=== PATIENT | female | born 1955 | race Caucasian/White ===

== ENCOUNTER 2021-05-17 13:28 | Emergency (ER) | payer OTHER, SELFPAY ==
[2021-05-17 13:28] VITALS: BP 197/101; PULSE 87; RESP 16; TEMP 36.3; O2SAT 100; BMI 31.3
[2021-05-17 13:30] VITALS: BP 197/101; PULSE 87; RESP 16; TEMP 36.3; O2SAT 100
[2021-05-17 14:34] LABS: Bacteria 0 SEEN /hpf (None Seen); Mucous, Urine 0 SEEN /hpf (<or=2+); White Blood Cells 0 SEEN /hpf (0-5)
[2021-05-17 14:35] LABS: Color, Urine Yellow (Yellow); Glucose, Dipstick Normal (Normal); Ketone-Dipstick 15 mg/dl (Negative); Leukocyte Esterase-Dipstick Negative /ul (Negative); Nitrite-Dipstick Negative (Negative); Occult Blood-Urine 250 /ul (Negative); Protein-Dipstick Negative (Negative); Specific Gravity, Urine 1.015 (1.002-1.030); Urine Bilirubin Dipstick Negative (Negative); Urine Clarity Clear (Clear); Urine Urobilinogen Normal (Normal)
--- NOTE | 2021-05-17 14:35 | CT_ITS ---
HISTORY: Left flank pain EXAMINATION: CT Abdomen And Pelvis W/O Contrast Injection TECHNIQUE: Multiple axial images were obtained of the abdomen and pelvis without oral or IV contrast. A radiation dose optimization technique was used for this scan. IV Contrast dosage and agent: None. Oral contrast: None. COMPARISON: None FINDINGS: LOWER CHEST: Lung bases are clear. No cardiomegaly or pericardial effusion. LIVER: Homogeneous. No focal mass. GALLBLADDER AND BILIARY TREE: No calcified gallstones. No gallbladder distension or wall edema. No intra- or extrahepatic biliary ductal dilation. PANCREAS: No focal cystic or solid mass. SPLEEN: Normal size without focal cystic or solid mass. ADRENAL GLANDS: No nodules. KIDNEYS AND URETERS: Nonobstructing left nephrolithiasis. Prominent left extrarenal pelvis with mild prominence of the collecting system and left perinephric stranding. No left ureteral dilatation or calculus in the lumen of the left ureter. PERITONEUM: No ascites or free air. BOWEL: No evidence of acute appendicitis. No stomach or bowel distension. No focal inflammatory bowel wall changes. LYMPH NODES: No enlarged mesenteric or retroperitoneal lymph nodes. VESSELS: Aorta is non-dilated. URINARY BLADDER: Unremarkable. REPRODUCTIVE ORGANS: No pelvic masses. BONES: No acute or aggressive abnormality. Chronic L2 compression fracture with mild retropulsion of the posterior endplate. CT/Abdomen/Pelvis without Cont IMPRESSION: Nonobstructing left nephrolithiasis. 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 Correlate to exclude ascending UTI. Individualized dose optimization techniques were used for this CT. at 1543 Reported and signed by: Gama Serrato MD Electronically Signed: Gama Serrato MD at 15:42 EDT ,
[2021-05-17 14:50] LABS: Absolute Lymphocyte Count 1.38 X10^3/uL (0.83-4.51); Basophil# 0.06 X10^3/uL; Basophil% 0.6 % (0-1); Eosinophil# 0.03 X10^3/uL; Eosinophils% 0.3 % (0-5); Hematocrit 43.6 % (37-47); Hemoglobin 14.4 g/dL (12.0-15.0); Lymphocyte # 1.38 X10^3/ul (0.83-4.51); Lymphocyte % 13.9 % (19-41); Mean Corpuscular Hgb 28.5 pg (27.0-32.0); Mean Corpuscular Volume 86.2 fL (81-99); Mean Platelet Vol. 10.3 fl (6.2-12.0); Monocyte# 0.46 X10^3/uL; Monocyte% 4.6 % (0-10); NRBC Flagged by Analyzer 0 % (0-5); Neutrophil # 7.97 X10^3/uL (2.7-7.7); Neutrophil % 80.3 % (47-70); Platelet Count 267 K/mm3 (150-450); RBC Distribution Width CV 13.6 % (11.6-14.6); RBC Distribution Width SD 42.7 fl (35.1-43.9); Red Blood Count 5.06 M/mm3 (4.2-5.4); White Blood Count 9.9 K/mm3 (4.4-11.0)
[2021-05-17 14:56] LABS: Red Blood Cells-Urine 25-50 SEEN /hpf (0-5); Squamous Epithelial Cells - UA 0-5 SEEN /hpf (5-10)
[2021-05-17 15:16] LABS: ALB/GLOB Ratio 1.1 RATIO (0.9-2.4); AST(SGOT) 28 U/L (15-37); Alanine Aminotransfer ALT/SGPT 41 U/L (13-56); Albumin, Serum 4.1 g/dL (3.2-5.0); Alkaline Phosphatase 61 U/L (45-117); Anion Gap 4 (5-15); BUN 17 mg/dL (7-18); BUN/Creat Ratio 20.8 RATIO (10-20); Calcium,Total 9.6 mg/dL (8.5-10.1); Chloride 107 mmol/L (98-107); Creatinine, Serum 0.82 mg/dL (0.55-1.02); EST Glomerular Filtration Rate 74 mL/min (>60); Est Glom Filt Rate - Afr Amer 90 mL/min (>60); Estimated Creatinine Clearance 63.85 ml/min; Globulin 3.7 g/dL (2.2-4.2); Glucose 102 mg/dL (74-106); Protein, Total 7.8 g/dL (6.4-8.2); Sodium Level 139 mmol/L (136-145); Thyroid Stim Hormone (TSH) 1.76 uIU/mL (0.358-3.74)
--- NOTE | 2021-05-17 15:41 | EX.ED.DYSGE1 ---
HPI History of Present Illness Chief Complaint: Flank Pain Informant: patient Onset/Context/Timing Onset: Yesterday Context: Gradual Onset Timing: Waxes and wanes Quality: Stabbing Location: Left flank Worsened by: Nothing Relieved by: Laying down, vomiting Narrative Narrative: Patient presents with left flank pain that began yesterday. Patient states it has been waxing and waning. Patient describes her pain as stabbing. Patient states it came on gradually. Patient states nothing makes it worse. Patient states seems to get better whenever she lays down. Patient also had an episode of nausea and vomiting. Patient states her pain got better after that. Patient admits to some subjective chills but denies any fevers. Patient denies any dysuria or hematuria. PFSH PFSH Medical History no medical history no medical history Home Medications hydrocodone-acetaminophen 1 tab PO Q6H PRN PRN 3 Days #10 tablet 05/17/21 [Rx Last Taken Unknown] Allergy/AdvReac Type Severity Reaction Status Date / Time No Known Allergies Allergy Verified 05/17/21 13:30 Surgical History (Updated 05/17/21 @ 15:[address] Enrique Mckay DO) Hx of tubal ligation Social History Smoking Status: Never smoker ROS ROS ED Constitutional Constitutional ED: Reports chills and subjective; Denies fever(s) Eyes Eyes: Denies blurry vision or change in vision ENT ENT ED: Denies rhinorrhea or sore throat Cardiovascular Cardiovascular: Denies chest pain or palpitations Respiratory/Chest Respiratory/Chest: Denies cough or dyspnea Gastrointestinal Gastrointestinal: Reports nausea and vomiting Genitourinary Genitourinary ED: Denies dysuria or hematuria Musculoskeletal Musculoskeletal: Reports back pain; Denies neck pain Integumentary Denies abscess or rash Neurologic Neurologic: Denies headache(s) or weakness Allergic/Immunologic Allergic/Immunologic ED: Denies mouth swelling or urticaria EXAM Physical Exam Const Vital Signs: 05/17/21 13:28 05/17/21 13:30 Temperature 97.3 F L 97.3 F L Temperature Source Temporal Temporal Pulse Rate 87 87 Respiratory Rate 16 16 Respiratory Pattern Normal Blood Pressure 197/101 H 197/101 H Blood Pressure Mean 133 133 Pulse Ox 100 100 Oxygen Delivery Method Room Air Room Air Positive well nourished and well developed General Appearance ED: well developed HEENT Reports moist mucous membranes Neck supple and no JVD Resp normal respiratory effort and clear to auscultation bilaterally Cardio regular rate, regular rhythm and no murmurs GI normal to inspection, nondistended, normoactive bowel sounds and non-tender Palpation: soft Back/Spine General Back: CVA tenderness left (Mild) Extremity normal to inspection General Extremety ED: Negative for edema or tenderness General Extremity: Negative for edema Neuro oriented x3, CN's II-XII intact bilaterally and no sensory deficits noted Sensorium / Orientation: alert Motor Exam: strength 5/5 throughout Psych mental status grossly normal Skin no rashes or lesions noted MDM MDM MDM Narrative Medical decision making narrative: Currently, patient denies any pain. CBC was within normal limits. Comprehensive metabolic profile was within normal limits. Urinalysis shows occult blood 250 with 25-50 red blood cells. There is no evidence of urinary tract infection. CT scan of the abdomen pelvis was obtained. There is a left renal calculus. There is some mild prominence of the left collecting system and perinephric stranding. There is no hydroureter or calculus within the lumen of the ureter. This was interpreted by the radiologist and reviewed by myself. Patient was advised of her findings. Patient was instructed to follow-up with her primary care physician in 5 to 7 days. Patient was also given a referral for urology. Patient was given a prescription for a short course of [place]. Patient was instructed to drink plenty of fluids. Patient was instructed return if worse in any way. Patient understood and was agreeable with the plan. All questions were answered. Lab Data Attestation: I reviewed the patient's lab results. Labs: Laboratory Results - last 24 hr 05/17/21 05/17/21 05/17/21 14:00 14:05 14:05 WBC 9.9 RBC 5.06 Hgb 14.4 Hct 43.6 MCV 86.2 MCH 28.5 MCHC 33.0 RDW Std Deviation 42.7 RDW Coeff of Trae 13.6 Plt Count 267 MPV 10.3 Immature Gran % (Auto) 0.300 Neut % (Auto) 80.3 H Lymph % (Auto) 13.9 L [place] % (Auto) 4.6 Eos % (Auto) 0.3 Baso % (Auto) 0.6 Absolute Neuts (auto) 8.0 H Absolute Lymphs (auto) 1.38 Nucleated RBC % 0 Sodium 139 Potassium 4.0 Chloride 107 Carbon Dioxide 28.0 Anion Gap 4 L BUN 17 Creatinine 0.82 Estim Creat Clear Calc 63.85 Est GFR (MDRD) Af Amer 90 Est GFR (MDRD) Non-Af 74 BUN/Creatinine Ratio 20.8 H Glucose 102 Calcium 9.6 Total Bilirubin 0.50 AST 28 ALT 41 Alkaline Phosphatase 61 Total Protein 7.8 Albumin 4.1 Globulin 3.7 Albumin/Globulin Ratio 1.1 TSH 1.76 Urine Color Yellow Urine Clarity Clear Urine pH 6.0 Ur Specific [place] 1.015 Urine Protein Negative Urine Glucose (UA) Normal Urine Ketones 15 H Urine Occult Blood 250 H Urine Nitrite Negative Urine Bilirubin Negative Urine Urobilinogen Normal Ur Leukocyte Esterase Negative Urine RBC 25-50 SEEN Urine WBC 0 SEEN Ur Squamous Epith Cells 0-5 SEEN Urine Bacteria 0 SEEN Urine Mucus 0 SEEN Radiography Diagnostic Testing: Clinical Impression(s) from Imaging Studies Abdomen/Pelvis CT 05/17/21 14:35 IMPRESSION: Nonobstructing left nephrolithiasis. 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 Correlate to exclude ascending UTI. Individualized dose optimization techniques were used for this CT. at 1543 Reported and signed by: Gama Serrato MD Electronically Signed: Gama Serrato MD at 15:42 EDT Reading Location ID and State: [facility] / [place] Tel , Service support , Discharge Plan Triage Chief Complaint: Flank Pain ED Provider: Enrique Mckay Dx/Rx/DC Orders Clinical Impression: Acute left flank pain, Kidney stone on left side, Hematuria Instructions: ED Flank Pain, Uncertain Cause Prescriptions: New hydrocodone-acetaminophen [hydrocodone-acetaminophen] 1 TABLET tablet 1 tab PO Q6H PRN PRN (Reason: Pain) 3 Days Qty: 10 RF: 0 Primary Care Provider: Care Physician,No Primary Referrals: Rhianna Orozco MD [STAFF PHYSICIAN] - 5-7 Days Jess Barillas MD [STAFF PHYSICIAN] - 3-5 Days Care Physician,No Primary [Primary Care Provider] - Disposition Disposition: Home, Self Care
[2021-05-17 16:27] VITALS: BP 151/80; PULSE 79; RESP 15; O2SAT 99
== END 2021-05-17 16:28 | disposition home or self-care (01) ==
PROVIDERS: Emergency Provider Emergency Medicine; Visit Provider Emergency Medicine
DX: R10.9 Unspecified abdominal pain (principal); N20.0 Calculus of kidney; R31.9 Hematuria, unspecified; R11.2 Nausea with vomiting, unspecified; Z79.899 Other long term (current) drug therapy
CPT/HCPCS: 74176; 80053; 81001; 84443; 85025; 99284; A4216

== ENCOUNTER → 2021-12-03 | Outpatient (CLI) | payer MEDICARE, SELFPAY ==
[2021-12-03 17:54] LABS: Absolute Lymphocyte Count 2.02 X10^3/uL (0.83-4.51); Absolute Neutrophil Count 5.1 X10^3/uL (2.0-7.7); Basophil# 0.06 X10^3/uL; Basophil% 0.8 % (0-1); Eosinophil# 0.17 X10^3/uL; Eosinophils% 2.2 % (0-5); Hematocrit 42.7 % (37-47); Hemoglobin 14.1 g/dL (12.0-15.0); Lymphocyte # 2.02 X10^3/ul (0.83-4.51); Lymphocyte % 25.6 % (19-41); Mean Corpuscular Hgb 29.6 pg (27.0-32.0); Mean Corpuscular Volume 89.7 fL (81-99); Mean Platelet Vol. 10.5 fl (6.2-12.0); Monocyte# 0.57 X10^3/uL; Monocyte% 7.2 % (0-10); NRBC Flagged by Analyzer 0 % (0-5); Neutrophil # 5.07 X10^3/uL (2.7-7.7); Neutrophil % 64.1 % (47-70); Platelet Count 257 K/mm3 (150-450); RBC Distribution Width CV 12.7 % (11.6-14.6); RBC Distribution Width SD 42.3 fl (35.1-43.9); Red Blood Count 4.76 M/mm3 (4.2-5.4); White Blood Count 7.9 K/mm3 (4.4-11.0)
[2021-12-03 18:13] LABS: Vitamin B12 640 pg/mL (211-911)
[2021-12-03 18:22] LABS: ALB/GLOB Ratio 0.9 RATIO (0.9-2.4); AST(SGOT) 25 U/L (15-37); Alanine Aminotransfer ALT/SGPT 41 U/L (13-56); Albumin, Serum 3.7 g/dL (3.2-5.0); Alkaline Phosphatase 69 U/L (45-117); Anion Gap 4 (5-15); BUN 31 mg/dL (7-18); BUN/Creat Ratio 42.8 RATIO (10-20); Calcium,Total 9.4 mg/dL (8.5-10.1); Chloride 106 mmol/L (98-107); Cholesterol 236 mg/dL (200); Creatinine, Serum 0.72 mg/dL (0.55-1.02); EST Glomerular Filtration Rate 85 mL/min (>60); Est Glom Filt Rate - Afr Amer 103 mL/min (>60); Glucose 88 mg/dL (74-106); High Density Lipoprotein 88 mg/dL; Potassium 4.2 mmol/L (3.5-5.1); Protein, Total 7.7 g/dL (6.4-8.2); Sodium Level 140 mmol/L (136-145); T4 Free Direct 0.93 ng/dL (0.76-1.46); Thyroid Stim Hormone (TSH) 1.75 uIU/mL (0.358-3.74); Triglycerides 118 mg/dL; Very Low Density Lipoprotein 24 mg/dL (5-40)
== END | disposition home or self-care (01) ==
LOC: BIMLAB 14:58
PROVIDERS: PCP Internal Medicine; Visit Provider Internal Medicine
DX: I10 Essential (primary) hypertension (principal); F41.9 Anxiety disorder, unspecified; F32.A Depression, unspecified
CPT/HCPCS: 36415; 80053; 80061; 82607; 84439; 84443; 85025

== ENCOUNTER → 2021-12-18 | Outpatient (CLI) | payer MEDICARE, SELFPAY ==
--- NOTE | 2021-12-18 14:16 | BI_ITS ---
MAMMOGRAPHY - BILATERAL DIAGNOSTIC REASON FOR EXAM: Female, 66 years old. Right breast mass. PERTINENT HISTORY: Non-contributory. TECHNIQUE: Digital bilateral breast devin (3D mammographic acquisition) in the CC and MLO projections. 2-D mediolateral oblique (MLO) and craniocaudad (CC) views of both breasts were obtained. CAD: Full Field Digital Mammography with Computer Added Detection was performed. COMPARISON: No comparison mammograms available at this time. If any prior films become available, an addendum to this report can be generated. FINDINGS: Breast Composition: There are scattered areas of fibroglandular density. The palpable abnormality corresponds to a 2.4 cm x 2.4 cm irregular nodule in the central retroareolar region of the right breast. There is evidence of the nipple inversion. Correlation with ultrasound is recommended. No other significant abnormalities are identified. BI/DIAG MAMM W/CAD, BILAT IMPRESSION: The abnormality corresponds to 2.4 cm x 2.4 cm irregular nodule in the central retroareolar region of the right breast. There is inversion of the right areolar complex. This is highly suspicious for carcinoma. Correlation with ultrasound is recommended. ASSESSMENT CATEGORY: BIRADS Category 0: Incomplete. Need additional imaging evaluation. A letter regarding these results will be sent to the patient by the facility within 30 days. Approximately 10% of breast cancers are not detected by mammography. A normal mammogram should not delay biopsy of a clinically suspicious abnormality. Electronically Signed: Vick Simmons MD at 15:08 EDT ,
--- NOTE | 2021-12-18 14:16 | US_ITS ---
STUDY: ULTRASOUND BREAST - RIGHT REASON FOR EXAM: Female, 66 years old. Abnormal screening mammogram. TECHNIQUE: Axial and longitudinal images of the RIGHT breast were performed with a high resolution ultrasound transducer. # OF IMAGES: 36 COMPARISON: Comparison is made with prior mammogram dated 12/18/2021. FINDINGS: RIGHT Breast: The mammographic abnormality corresponds to an irregular lobulated hypoechoic solid mass with posterior acoustical shadowing at the 3 o''clock position breast at 2 cm from nipple. This measures 2.6 cm x 2.6 x 2.2 cm. This corresponds to the palpable abnormality. Biopsy recommended. Incidental note is made of a 2.6 cm x 1.8cm by 0.8 cm lymph node in the right axilla. US/Breast Limited Unilateral IMPRESSION: There is a 2.6 cm x 2.6 cm x 2.2 cm lobulated heterogeneous mass at the 2 o''clock position breast at 2 cm from the nipple. Biopsy recommended. Incidental note is made of a 2.6 cm x 1.8 cm x 0.8 cm lymph node in the right axilla. ASSESSMENT CATEGORY: BIRADS Category 4: Suspicious - Biopsy Should Be Considered. A letter regarding these results will be sent to the patient by the facility within 30 days. Electronically Signed: Vick Simmons MD at 14:07 EDT ,
== END | disposition home or self-care (01) ==
PROVIDERS: PCP Internal Medicine; Referring Provider Internal Medicine; Visit Provider Internal Medicine
DX: N63.10 Unspecified lump in the right breast, unspecified quadrant (principal); N64.4 Mastodynia; R79.89 Other specified abnormal findings of blood chemistry
CPT/HCPCS: 76642; 77062; 77066; 82274; G0279

== ENCOUNTER → 2021-12-24 | Outpatient (CLI) | payer MEDICARE, SELFPAY ==
--- NOTE | 2021-12-24 | BRBX_PTH ---
PATIENT: LEYLA COLÓN LOC: [facility] U#:[id number] AGE/SX: 66/F ROOM: RE12/24/[address]: Dr. Caron Simeon MD : 1955 BED: DIS: 12/24/2021 SPEC #: [id number] RECD: 12/24/21 16:53 STATUS: JADA MOSHE #: [id number] GERALD: 12/24/21 00:[address]: Caron Simeon DEPT: SURGICAL PATHOLOGY RECD BY: Durga Arguello ENTERED: 12/25/21 11:01 SP TYPE: BREAST BX ALESSANDRA DR: Dr. Domenic Hector MD Tissues: A - Right breast, NOS B - Axillary lymph node, NOS Procedures: Surgery Specimen Level IV HEADER OPERATION: Right breast biopsy x2 PRE-OP DIAGNOSIS: Right breast lump and right axillary TISSUE SUBMITTED: A ? Right breast tissue 3 o?clock, 1 cm from nipple, B ? Right axillary lymph node tissue MICROSCOPIC DIAGNOSIS A. 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 See comment. B. Right axillary lymph node, core biopsy: Lymph node tissue with metastatic carcinoma (0.4 cm in greatest dimension). See comment. SJ:rg 12/28/2021 COMMENT A. Immunohistochemistry ([id number]) supports the above diagnosis. ER/ME/Olm2snx studies are being performed on sections of tumor and the results from this study will be reported separately ([id number]). B. Immunohistochemistry ([id number]) supports the above diagnosis. The results are reported to Dr. Simeon?s office on 12/28/2021. Case has been reviewed in consultation with Dr. Ruff who concurs with the above diagnosis. IDC:AM MICROSCOPIC DESCRIPTION Slides are reviewed. GROSS DESCRIPTION A - Received in fixative is one container labeled with the patient's name and designated right breast tissue. The specimen consists of multiple irregular and elongated fragments of coreas tissue that in aggregate measure 2 x 0.2 x 0.2 cm. The specimen is totally submitted in one cassette. B - Received in fixative is one container labeled with the patient's name and designated right lymph node tissue. The specimen consists of multiple irregular and elongated fragments of coreas tissue that in aggregate measure 1.2 x 0.2 x 0.1 cm. The specimen is totally submitted in one cassette. / AM:olamide 12/25/2021 TC:0 [facility]: [id number] x2 ADDENDUM ADDENDUM ADDENDUM ADDENDUM ADDENDUM ADDENDUM ADDENDUM ADDENDUM 03/16/2022 10:43 ADDENDUM 03/16/2022 10:43 ADDENDUM 03/16/2022 10:43 ADDENDUM 03/16/2022 10:43 ADDENDUM 03/16/2022 10:43 An order for Oncotype testing was received from Dr. Ann. This necessitated case review, block and slide selection by pathologist at [facility]. Breast Cancer Recurrence Score = 22 Results of the complete Oncotype testing ([employer] report) are viewable in EMR under: Reports - Pathology - Lab Pathology Report, Scanned.
--- NOTE | 2021-12-24 | IMM_PTH ---
PATIENT: LEYLA COLÓN LOC: [facility] U#:[id number] AGE/SX: 66/F ROOM: RE12/24/[address]: Dr. Caron Simeon MD : 1955 BED: DIS: 12/24/2021 SPEC #: [id number] RECD: 12/28/21 10:06 STATUS: JADA REQ #: [id number] GERALD: 12/24/21 00:[address]: Caron Simeon DEPT: IMMUNOHISTOCHEMISTRY RECD BY: Padmini Gutiérrez ENTERED: 12/28/21 10:08 SP TYPE: IMMUNO OTHR DR: Dr. Domenic Hector MD Tissues: A - Right breast, NOS B - Axillary lymph node, NOS Procedures: CALPONIN-1 (add) CK5-6 (add) CK7 (add) CK8 (add) E-CAD (add) HER2 JENNIFER (add) KI-67 (add) MAMM (add) P53 (add) KY (add) IN SITU HYBRIDIZATION Pankeratin (initial) GATA3 (add) P40 (add) ER (initial) PHYSICIAN & INSTITUTION [place] [phone] SPECIMEN INFORMATION: Tissue Source: A ? Right breast, 3 o?clock, B ? Right axillary lymph node tissue Clinical Info: Right breast lump and right axillary Specimen Number: [id number] A & B CPT code: 43809 x2, 34418 x9, 35319 x3, 99439 x2 METHODOLOGY: Deparaffinized sections of prefer/formalin-fixed tissue or PAP/DQ stained slides are incubated with monoclonal/polyclonal antibodies/oligonucleotide probes. Localization is made via biotin free immunoperoxidase method. Appropriate controls are performed and reacted as expected. Results on target cell population are indicated in the following table: RESULTS: ANTIBODY / CLONE RESULT Block A E-Cad (ECH-6) positive CK8 (75wifhA24) positive Calponin-1 (TY071K) negative CK5-6 (D5 & 1684) negative P40 (BC28) negative P53 (DO-7) positive, low, 20%, weak Ki-67 (30-9) positive, ~15%, low MORPHOMETRIC ANALYSIS ER (clone 6F11) >95%, strong intensity KY (clone 16/1E2) variable, 2-8%, weak intensity Her-2Neu (clone CB11) 1-2+ Block B AE1-3 (AE1/AE3/PCK26) positive CK7 (OV-TL12/30) positive GATA3 (L50-823) positive Mammaglobin (31A5) positive The prognostic test for HER2 is performed on formalin-fixed paraffin embedded tissue. A 3+ (positive) staining pattern is defined as intense, homogeneous, complete, circumferential membranous staining in >10% of contiguous tumor cells. A similar weak (2+) staining pattern is interpreted as equivocal. AMAYA follow-up testing is recommended for all equivocal cases. Positivity/negativity for ER/KY is reported if > or < 1% of the tumor cells are immuno- reactive, respectively. The ASCO/CAP criteria is used for scoring. Reference: Journal of Clinical Oncology, 2013; 31:3159-6120 & 2010; 16:7672-6217. Duration of fixation: 77.5 Hrs; Sample Adequate: Yes. These assays have not been validated on decalcified tissues. Results should be interpreted with caution given the likelihood of false negativity on decalcified specimens. These tests were developed and their performance characteristics determined by [facility]. They may not have been cleared or approved by the U.S. Food and Drug Administration. The FDA has determined that such clearance or approval is not necessary. The above immunohistochemical/dualISH markers are ordered and reviewed by the Pathologist. INTERPRETATION: A. Right breast, 3 o?clock, 1 cm from nipple, core biopsy: Invasive ductal carcinoma, nuclear grade 1. Positive for estrogen receptors (favorable prognostic indicator). Positive for progesterone receptors (favorable prognostic indicator). Equivocal for overexpression of OVG3yyf. B. Right axillary lymph node tissue, core biopsy: Lymph node tissue with metastatic carcinoma. RICKIE:olamide 12/29/2021 ADDENDUM ADDENDUM ADDENDUM ADDENDUM ADDENDUM ADDENDUM ADDENDUM ADDENDUM ADDENDUM ADDENDUM ADDENDUM ADDENDUM ADDENDUM ADDENDUM ADDENDUM ADDENDUM ADDENDUM ADDENDUM ADDENDUM ADDENDUM ADDENDUM ADDENDUM ADDENDUM 12/30/2021 12:02 ADDENDUM 12/30/2021 12:02 ADDENDUM 12/30/2021 12:02 ADDENDUM 12/30/2021 12:02 ADDENDUM 12/30/2021 12:02 IN SITU HYBRIDIZATION (AMAYA) FOR HER2 Interpretation: Negative / Not Amplified Block A HER2 : CEP-17 Ratio: 1.12 Average HER2 Signal: 1.55 Average CEP-17 Signal: 1.75 Number of Tumor Cells Scanned: 50 Interpretative Information: The INFORM HER2 Dual AMAYA DNA Probe Cocktail assay is performed on formalin-fixed paraffin embedded tissue and determines HER2 gene status by detecting HER2 copies via silver in situ hybridization (SISH) and Chromosome 17 copies via chromogenic red in situ hybridization on tumor cells. A minimum of 20 cells representing > 10% of contiguous and homogeneous invasive tumor cells were analyzed. HER2 gene status is classified as Non-amplified (HER2/Chr17 ratio < 2.0) or Amplified (HER2/Chr17 ratio greater than or equal to 2.0). If the resulting HER2/Chr17 ratio falls within 1.8 - 2.2 (Borderline), retesting by FISH is recommended. Reference: Timbo AC, Kati KRUGER, Angel DG, et al: Recommendations for Human Epidermal Growth Factor Receptor 2 Testing in Breast Cancer: [place] Society of Clinical Oncology / [employer] Clinical Practice Guideline Update. J Clin Oncol 31:0237-9337, 2013. SJ:olamide 12/30/2021
== END | disposition home or self-care (01) ==
PROVIDERS: PCP Internal Medicine; Visit Provider Surgery
DX: C50.919 Malignant neoplasm of unspecified site of unspecified female breast (principal); C77.3 Secondary and unspecified malignant neoplasm of axilla and upper limb lymph nodes
CPT/HCPCS: 88305; 88341; 88342; 88368

== ENCOUNTER → 2022-01-12 | Outpatient (CLI) | payer MEDICARE, SELFPAY ==
--- NOTE | 2022-01-12 13:19 | MRI_ITS ---
STUDY: BILATERAL BREAST MR WITHOUT AND WITH CONTRAST REASON FOR EXAM: Female, 66 years old. Right breast cancer. TECHNIQUE: Multi-sequence multi-echo imaging of both breasts was performed with a dedicated breast coil. T1-weighted and T2-weighted images were performed before the administration of contrast. T1-weighted images were also performed after the intravenous administration of 19 mL of Clariscan contrast. COMPARISON: Ultrasound-guided biopsy images dated December 24, 2021, unilateral right diagnostic mammogram and breast ultrasound dated December 18, 2021. FINDINGS: RIGHT BREAST: Scattered areas of fibroglandular density with minimal background enhancement. Lobulated enhancing mass in the right breast at approximately the 3:00 position, 2 cm from the nipple measuring 2.8 cm x 2.1 cm x 3.1 cm.. Mass corresponds to the mammographic and ultrasonographic findings. Skin retraction and skin thickening superficial to the mass. Increased vascularity to the mass. One lobulated enlarged lymph node in the right axilla measuring 17 mm in diameter and best seen on axial series image 67. LEFT BREAST: Scattered areas of fibroglandular density with minimal background enhancement. There are no abnormal enhancing masses or areas of non-mass enhancement in the left breast. No enlarged or abnormal lymph nodes. There is no abnormality in the visualized regions of the chest or liver. MRI/Breast Bilateral W/O and W IMPRESSION: Lobular enhancing mass in the right breast corresponding to the mammographic and ultrasonographic findings. This lesion represents the index lesion. One 17 mm in diameter enlarged lymph node in the right axilla as described. CATEGORY: BIRADS Category 6: Known Biopsy-Proven Malignancy - Appropriate Action Should Be Taken. A letter regarding these results will be sent to the patient by the facility within 30 days. Electronically Signed: Michael Valentine, at 10:18 EST ,
== END | disposition home or self-care (01) ==
LOC: MRI 13:19
PROVIDERS: PCP Internal Medicine; Referring Provider Surgery; Visit Provider Surgery
DX: R92.8 Other abnormal and inconclusive findings on diagnostic imaging of breast (principal)
CPT/HCPCS: 77049; A9575; A4216; C8908

== ENCOUNTER 2022-02-05 08:35 | Day surgery (SDC) | payer MEDICARE, SELFPAY ==
--- NOTE | 2022-02-05 | AXNB_PTH ---
PATIENT: LEYLA COLÓN LOC: [facility] [place] U#:[id number] AGE/SX: 66/F ROOM: RE02/05/[address]: Dr. Caron Simeon MD : 1955 BED: DIS: 02/05/2022 SPEC #: [id number] RECD: 02/05/22 12:09 STATUS: JADA RESam #: [id number] GERALD: 02/05/22 00:[address]: Caron Simeon DEPT: SURGICAL PATHOLOGY RECD BY: Padmini Gutiérrez ENTERED: 02/05/22 13:15 SP TYPE: AX NODE BX OTHR DR: Dr. Domenic Hector MD Tissues: A - Axillary lymph node, NOS B - Axillary lymph node, NOS C - Right breast, NOS Procedures: Frozen Section (charge) Surgery Specimen Level V HEADER OPERATION: Ultrasound-guided wire localization lumpectomy and axillary lymph node biopsy PRE-OP DIAGNOSIS: Malignant neoplasm of right breast TISSUE SUBMITTED: A - Right axillary sentinel lymph node, FS, B ? Additional right axillary sentinel lymph node, FS, C ? Right breast mass, long stitch ? medial, short stitch - superior FROZEN SECTION DIAGNOSIS A. Right axillary sentinel lymph node, biopsy: One out of one lymph node positive for metastatic carcinoma. B. Additional right axillary sentinel lymph node, biopsy: One out of one lymph node negative for carcinoma. AM:olamide 02/05/2022 MICROSCOPIC DIAGNOSIS A. Right axillary sentinel lymph node, biopsy: One lymph node, positive for metastatic carcinoma. See comment. B. Additional right axillary sentinel lymph node, biopsy: One lymph node, negative for carcinoma. See comment. C. Right breast mass, lumpectomy with wire localization: Invasive ductal carcinoma. See cancer summary in the comment section. SJ:olamide 02/10/2022 SJ: 02/11/2022 COMMENT A. Metastatic focus measures 1.5 x 1 cm (measured microscopically). Extranodal extension is not seen. B. The lymph node is negative for metastatic carcinoma on multiple H & E levels and immunohisto-chemical stains for cytokeratins ([id number]). C. BREAST CANCER SUMMARY Procedure - lumpectomy with wire localization Specimen laterality - right Invasive tumor: Tumor site ? 3 o?clock, 1 cm from nipple Tumor size ? 3 x 2.5 x 2 cm Histologic type ? invasive ductal carcinoma with focal mucinous differentiation. Histologic grade ([place] grade): Glandular/tubular differentiation score - 3 Nuclear pleomorphism score - 2 Mitotic count score - 1 Overall grade - grade 2 (score of 6) Tumor focality ? single focus of invasive carcinoma. Ductal carcinoma in situ - present Negative for extensive intraductal component (EIC). Size (extent) of DCIS ? DCIS comprise <10% of the total tumor volume. Number of blocks with DCIS - 3 Number of blocks examined - 12 Architectural pattern ? solid and cribriform Nuclear grade - grade 2 (intermediate) Necrosis - present, focal (single cell necrosis) Lobular carcinoma in situ ? not identified Tumor extension: Skin ? not present Nipple ? not applicable Skeletal muscle ? no skeletal muscle is present. Margins: Invasive carcinoma margin ? the tumor is present at the superior margin. Distance from other margins ? posterior 0.1 cm, anterior 0.3 cm, and inferior 0.4 cm Ductal carcinoma in situ margin ? uninvolved by ductal carcinoma in situ. Distance from closest margin ? 0.3 cm from medial margin Regional lymph nodes: Total number of lymph nodes examined - 2 Number of sentinel lymph nodes examined - 2 Number of lymph nodes with macrometastases - 1 Number of lymph nodes with micrometastases and isolated tumor cells - 0 Size of largest metastatic deposits ? 1.5 x 1 cm Extranodal extension ? not identified Treatment effect - no known presurgical therapy. Lymphvascular invasion ? not identified Dermal lymphvascular invasion ? not applicable Additional Pathologic Findings ? fibrocystic changes Ancillary Studies: Previously performed on same tumor ([id number] / [id number]) ER: positive (>95%, strong intensity) [place]: positive (variable, 2-8%, weak intensity) Doo0cvt: equivocal (1-2+) Her2 by AMAYA: Negative / Not amplified Microcalcifications ? not identified Clinical History - Please make reference to previous specimen ([id number]) right breast, 3 o?clock, 1 cm from nipple, core biopsy with diagnosis of ?invasive ductal carcinoma with focal mucinous features? and right axillary lymph node, core biopsy with diagnosis of ?lymph node tissue with metastatic carcinoma.? PATHOLOGIC STAGE: pT2 pN1a pMx The above summary is in compliance with [employer] [place] Path[employer] (CAP) Cancer Protocols Checklist and [place] Joint Committee on Cancer (AJCC), Staging Manual, 8th Ed. Case has been reviewed in consultation with Dr. Ruff who concurs with the above diagnosis. IDC:AM MICROSCOPIC DESCRIPTION Slides are reviewed. GROSS DESCRIPTION A - Received fresh for frozen section consultation labeled with the patient's name is a specimen designated right axillary sentinel lymph node. The specimen consists of an ovoid fragment of coreas tissue measuring 2 x 1.5 x 1.2 cm. Dissection reveals a white, firm area measuring 1.6 cm in greatest dimension. One-half of the lymph node is submitted for frozen section consultation. The other half is submitted in its entirety in block 2. / AM: 02/05/2022 B - Received fresh for frozen section consultation labeled with the patient's name is a specimen designated additional right axillary sentinel lymph node. The specimen consists of a single ovoid fragment of coreas tissue measuring 1 x 1 x 0.6 cm. The specimen is bisected and totally submitted in one block for frozen section consultation. / AM: 02/05/2022 C - Received fresh for OR consultation labeled with the patient's name is a specimen designated right breast mass. The specimen consists of a wire-guided lumpectomy specimen measuring 5 x 4 x 3.2 cm and weighing 23.4 gm. The specimen is inked as follows: anterior - yellow, posterior - black, superior - blue, inferior - green, medial - red and lateral - orange. Serial sections reveal a spiculated yellow-white mass measuring 3 x 2.5 x 2 cm. The mass is present at <1 mm from the superior and posterior margins of excision. The proximity of the lesion to these margins is conveyed to the surgeon intraoperatively. Operator Specialist Communications sections are submitted in 12 cassettes as follows: 1 & 2 - perpendicular inked margins, 37 ? mass with closest posterior and superior margins, 8-12 - underwriting sales representative sections of grossly uninvolved breast parenchyma adjacent to and away from lesion. Note, specimen is submitted after additional fixation. / AM:olamide 02/08/2022 TC:0 CPT: 13222 x3, 75693 x2, 95278
--- NOTE | 2022-02-05 | AXNB_PTH ---
PATIENT: LEYLA COLÓN LOC: [facility] [place] U#:[id number] AGE/SX: 66/F ROOM: RE02/05/[address]: Dr. Caron Simeon MD : 1955 BED: DIS: 02/05/2022 SPEC #: [id number] RECD: 02/05/22 12:09 STATUS: JADA RESam #: [id number] GERALD: 02/05/22 00:[address]: Caron Simeon DEPT: SURGICAL PATHOLOGY RECD BY: Padmini Gutiérrez ENTERED: 02/05/22 13:15 SP TYPE: AX NODE BX OTHR DR: Dr. Domenic Hector MD Tissues: A - Axillary lymph node, NOS B - Axillary lymph node, NOS C - Right breast, NOS Procedures: Frozen Section (charge) Surgery Specimen Level V HEADER OPERATION: Ultrasound-guided wire localization lumpectomy and axillary lymph node biopsy PRE-OP DIAGNOSIS: Malignant neoplasm of right breast TISSUE SUBMITTED: A - Right axillary sentinel lymph node, FS, B ? Additional right axillary sentinel lymph node, FS, C ? Right breast mass, long stitch ? medial, short stitch - superior FROZEN SECTION DIAGNOSIS A. Left axillary sentinel lymph node, biopsy: One out of one lymph node positive for metastatic carcinoma. B. Additional right axillary sentinel lymph node, biopsy: One out of one lymph node negative for carcinoma. AM:olamide 02/05/2022 MICROSCOPIC DIAGNOSIS A. Left axillary sentinel lymph node, biopsy: One lymph node, positive for metastatic carcinoma. See comment. B. Additional right axillary sentinel lymph node, biopsy: One lymph node, negative for carcinoma. See comment. C. Right breast mass, lumpectomy with wire localization: Invasive ductal carcinoma. See cancer summary in the comment section. SJ:olamide 02/10/2022 COMMENT A. Metastatic focus measures 1.5 x 1 cm (measured microscopically). Extranodal extension is not seen. B. The lymph node is negative for metastatic carcinoma on multiple H & E levels and immunohisto-chemical stains for cytokeratins ([id number]). C. BREAST CANCER SUMMARY Procedure - lumpectomy with wire localization Specimen laterality - right Invasive tumor: Tumor site ? 3 o?clock, 1 cm from nipple Tumor size ? 3 x 2.5 x 2 cm Histologic type ? invasive ductal carcinoma with focal mucinous differentiation. Histologic grade ([place] grade): Glandular/tubular differentiation score - 3 Nuclear pleomorphism score - 2 Mitotic count score - 1 Overall grade - grade 2 (score of 6) Tumor focality ? single focus of invasive carcinoma. Ductal carcinoma in situ - present Negative for extensive intraductal component (EIC). Size (extent) of DCIS ? DCIS comprise <10% of the total tumor volume. Number of blocks with DCIS - 3 Number of blocks examined - 12 Architectural pattern ? solid and cribriform Nuclear grade - grade 2 (intermediate) Necrosis - present, focal (single cell necrosis) Lobular carcinoma in situ ? not identified Tumor extension: Skin ? not present Nipple ? not applicable Skeletal muscle ? no skeletal muscle is present. Margins: Invasive carcinoma margin ? the tumor is present at the superior margin. Distance from other margins ? posterior 0.1 cm, anterior 0.3 cm, and inferior 0.4 cm Ductal carcinoma in situ margin ? uninvolved by ductal carcinoma in situ. Distance from closest margin ? 0.3 cm from medial margin Regional lymph nodes: Total number of lymph nodes examined - 2 Number of sentinel lymph nodes examined - 2 Number of lymph nodes with macrometastases - 1 Number of lymph nodes with micrometastases and isolated tumor cells - 0 Size of largest metastatic deposits ? 1.5 x 1 cm Extranodal extension ? not identified Treatment effect - no known presurgical therapy. Lymphvascular invasion ? not identified Dermal lymphvascular invasion ? not applicable Additional Pathologic Findings ? fibrocystic changes Ancillary Studies: Previously performed on same tumor ([id number] / [id number]) ER: positive (>95%, strong intensity) [place]: positive (variable, 2-8%, weak intensity) [id number]: equivocal (1-2+) Her2 by AMAYA: Negative / Not amplified Microcalcifications ? not identified Clinical History - Please make reference to previous specimen ([id number]) right breast, 3 o?clock, 1 cm from nipple, core biopsy with diagnosis of ?invasive ductal carcinoma with focal mucinous features? and right axillary lymph node, core biopsy with diagnosis of ?lymph node tissue with metastatic carcinoma.? PATHOLOGIC STAGE: pT2 pN1a pMx The above summary is in compliance with [employer] [place] Path[employer] (CAP) Cancer Protocols Checklist and [place] Joint Committee on Cancer (AJCC), Staging Manual, 8th Ed. Case has been reviewed in consultation with Dr. Ruff who concurs with the above diagnosis. IDC:AM MICROSCOPIC DESCRIPTION Slides are reviewed. GROSS DESCRIPTION A - Received fresh for frozen section consultation labeled with the patient's name is a specimen designated right axillary sentinel lymph node. The specimen consists of an ovoid fragment of coreas tissue measuring 2 x 1.5 x 1.2 cm. Dissection reveals a white, firm area measuring 1.6 cm in greatest dimension. One-half of the lymph node is submitted for frozen section consultation. The other half is submitted in its entirety in block 2. / AM: 02/05/2022 B - Received fresh for frozen section consultation labeled with the patient's name is a specimen designated additional right axillary sentinel lymph node. The specimen consists of a single ovoid fragment of coreas tissue measuring 1 x 1 x 0.6 cm. The specimen is bisected and totally submitted in one block for frozen section consultation. / AM: 02/05/2022 C - Received fresh for OR consultation labeled with the patient's name is a specimen designated right breast mass. The specimen consists of a wire-guided lumpectomy specimen measuring 5 x 4 x 3.2 cm and weighing 23.4 gm. The specimen is inked as follows: anterior - yellow, posterior - black, superior - blue, inferior - green, medial - red and lateral - orange. Serial sections reveal a spiculated yellow-white mass measuring 3 x 2.5 x 2 cm. The mass is present at <1 mm from the superior and posterior margins of excision. The proximity of the lesion to these margins is conveyed to the surgeon intraoperatively. J2Ee Android Developer sections are submitted in 12 cassettes as follows: 1 & 2 - perpendicular inked margins, 37 ? mass with closest posterior and superior margins, 8-12 - patient accounting representative sections of grossly uninvolved breast parenchyma adjacent to and away from lesion. Note, specimen is submitted after additional fixation. / AM:olamide 02/08/2022 TC:0 CPT: 06698 x3, 19787 x2, 63438
--- NOTE | 2022-02-05 | IMM_PTH ---
PATIENT: LEYLA COLÓN [place] [facility] [facility] [place][id number] AGE/SX: 66/F ROOM: RE02/05/[address]: Dr. Caron Simeon MD : 1955 BED: DIS: 02/05/2022 SPEC #: [id number] RECD: 02/10/22 13:19 STATUS: JADA REQ #: [id number] GERALD: 02/05/22 00:[address]: Caron Simeon DEPT: IMMUNOHISTOCHEMISTRY RECD BY: Padmini Gutiérrez ENTERED: 02/10/22 13:20 SP TYPE: IMMUNO OTHR DR: Dr. Domenic Hector MD Tissues: B - Axillary lymph node, NOS Procedures: CK7 (add) Pankeratin (initial) PHYSICIAN & INSTITUTION [place] [id number] SPECIMEN INFORMATION: Tissue Source: B ? Additional right axillary sentinel lymph node Clinical Info: Malignant neoplasm of right breast Specimen Number: [id number] CPT code: 25644, 58685 METHODOLOGY: Deparaffinized sections of prefer/formalin-fixed tissue or PAP/DQ stained slides are incubated with monoclonal/polyclonal antibodies/oligonucleotide probes. Localization is made via biotin free immunoperoxidase method. Appropriate controls are performed and reacted as expected. Results on target cell population are indicated in the following table: RESULTS: ANTIBODY / CLONE RESULT Block B AE1-3 (AE1/AE3/PCK26) negative CK7 (OV-TL12/30) negative These tests were developed and their performance characteristics determined by [facility]. They may not have been cleared or approved by the U.S. Food and Drug Administration. The FDA has determined that such clearance or approval is not necessary. The above immunohistochemical/dualISH markers are ordered and reviewed by the Pathologist. INTERPRETATION: B. Additional right axillary sentinel lymph node, biopsy: One lymph node, negative for metastatic carcinoma. SJ:olamide 02/11/2022
--- NOTE | 2022-02-05 08:54 | HP.PCM_ITS ---
History and Physical Date of Admission: 02/05/22 Date of Service:? 01/18/22 MR#: [id number] Acct: [id number] Name:? LEYLA COLÓN Rep #: [id number] : 1955 ? ? Provider: Dr. Caron Simeon MD Age/Sex:? 66/F ? ? Location: [facility] Status: Signed Intake Vital Signs ? 12/03/2213:18 Height 5 ft 7 in Intake Visit Reasons:?F/U MRI Results [facility] 01/12 Chief Complaint: Right breast birads Allergies No Known Allergies Allergy (Verified 01/18/22 14:04) Medications multivitamin with minerals 1 cap PO DAILY 12/03/21 [History Confirmed 01/18/22] lorazepam 1 mg tablet (Ativan) 1 mg PO DAILY anxiety #2 tabs 12/24/21 [Rx Confirmed 01/18/22] PFSH Medical History?(Updated 01/18/22 @ 14:[address] 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 History of tonsillectomy Hx of tubal ligation Family History? Other Asthma Depression Social History? Smoking Status:? Never smoker alcohol intake:? never substance use type:? does not use what type of physical activity do you participate in:? 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 ROS General General: Yes breast cancer; No fatigue or weakness Endo Endocrine: No cold intolerance Skin Skin: No rash Breast Breast: Yes right breast lump and abnormal US; No left breast lump, nipple discharge or breast pain Cardio Cardiovascular: No chest pain Psych Psychiatric: No depression Resp Respiratory: No shortness of breath Gastro Gastrointestinal: No abdominal pain, No diarrhea and No constipation Neuro Neurologic: No weakness Exam Const General: cooperative, healthy appearing, comfortable and no acute distress Neck Neck: normal visual inspection Chest Other: Right breast: Inversion of the right nipple due to retroareolar breast mass.? MRI does look as if we are able to get the mass without having to take the full areolar complex. 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 ? ? Orders: Referrals Oncology ? C50.911 - Malignant neoplasm of unspecified site of right female breast, C50.919 - Malignant neoplasm of unspecified site of unspecified female breast, C77.3 - Secondary and unspecified malignant neoplasm of axilla and upper limb lymph nodes ? Plan Did review patient's pathology results with her patient and her daughter via phone.? Also reviewed MRI images with the patient and personally reviewed. I have given the patient options for initial surgical treatment. Options are the following: lumpectomy followed by radiation therapy vs. mastectomy vs. mastectomy followed by immediate reconstruction. I have described the procedures to the patient. I have described the advantages and disadvantages of the options, but I have told the patient that among the options, the survival rate for breast cancer is the same. I have told the patient that with all the surgeries that a sentinel lymph node biopsy is required and would also be removing her positive node with ultrasound- guided wire localization. I have described the procedure of sentinel lymph node biopsy to the patient. 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 I have told the patient that adjuvant chemotherapy may be recommended depending on Oncotype DX score as we know that one of her nodes is already positive. Also, a full lymph node dissection will increase the risk for lymphedema, especially if there are 4 or more lymph nodes positive for metastatic disease and radiation to the axilla is also required--again we are planning to not do axillary lymph node dissection initially but will get any hot/blue/palpable lymph nodes. I have told the patient the risks of surgery, including but not limited to: infection, bleeding, scar tissue, seroma and persistent seroma, lymph leak, injury to any blood vessels, injury to any nerves (particularly the long thoracic, the thoracodorsal, and the second intercostal brachial and the resultant sequelae), lymphedema, cosmetic deformity, dysesthesias, wound infections, further surgery (especially if margins are not clear), complications of anesthesia, etc.? the patient understands.? Patient has appointment with Dr. Nunez to make sure she understands what would be required with radiation.? As she is planning to do right ultrasound-guided needle localization lumpectomy, ultrasound guided needle localization of positive right axillary node, sentinel lymph node biopsy with nuclear tracer and blue dye?hoping to save the nipple areolar complex as there appears to be enough room on MRI.? Surgery is tentative scheduled for the week of February 01. Caron Simeon M.D. Pager: [phone] [facility] [address] [place] [address], [address] [place] [phone] Office: [phone] Coding Level of Care Code Off vis,est,level 5 Diagnoses Invasive ductal carcinoma of right breast? 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 C50.919; C77.3 01/20/22 0752 <Electronically signed by Caron Simeon MD> Date Caron Simeon MD
--- NOTE | 2022-02-05 09:00 | NM_ITS ---
PROCEDURE: NUCLEAR MEDICINE Injection Ariton Node - RIGHT breast(s). REASON FOR EXAM: Female, 66 years old. Right breast cancer. TECHNIQUE: Ariton node localization using radionuclide methods of the RIGHT breast(s) was performed following subcutaneous administration of 1.1 mCi of of sulfur colloid Tc-99m. COMPARISON STUDIES : NM - None. CR - Not available for review at this time. CT - Not available for review at this time. MR - 01/12/2022 US - 12/18/2021 FINDINGS: 1.1 mCi of technetium labeled sulfur colloid was injected subcutaneously in 4 equal aliquots in the periareolar region. NM/Lymph Node Injection Only IMPRESSION: Subcutaneous injection of 1.1 mCi of technetium labeled sulfur colloid in 4 equal aliquots in the periareolar region. Electronically Signed: Vick Simmons MD at 9:36 EST ,
[2022-02-05 09:26] VITALS: BP 146/98; PULSE 73; RESP 18; TEMP 36.8; O2SAT 97; BMI 33.8
[2022-02-05] MEDS: Lactated Ringers 1,000 ML 15 ML IV (09:32)
[2022-02-05] MEDS: Cefazolin 2 GM in 0.9% Normal Saline 100 ML IV (10:52)
[2022-02-05] MEDS: 0.9% Normal Saline (Pres. free 10 ML Vial (11:10)
[2022-02-05] MEDS: Isosulfan Blue 1% 5 ML Vial (11:10)
--- NOTE | 2022-02-05 12:05 | BI_ITS ---
SURGICAL BREAST SPECIMEN RADIOGRAPH CLINICAL: Document presence of tissue clip marker in biopsy specimen. FINDINGS: Specimen shows presence of tissue clip marker. Electronically Signed: Vick Simmons MD at 13:17 EST , BI/Breast Biopsy Specimen IMPRESSION: undefined
--- NOTE | 2022-02-05 13:01 | OP.PCM_ITS ---
Report of Operation Date of Procedure: 02/05/22 Pre-Operative Diagnosis: Right breast cancer with metastatic to axillary lymph node Post-Operative Diagnosis: Same Surgery/Procedure Performed:: Right ultrasound-guided needle lumpectomy, right ultrasound-guided wire lymph node biopsy, sentinel lymph node biopsy, nuclear tracer and Lymphazurin. Description of Surgical Findings:: Previous known positive node positive, gamma probe count 5348 on 10 count; additional right sentinel node negative on frozen gamma probe count 621 on 10 count Surgeon: Caron Simeon principal librarian: Andra Bahena Type of Anesthesia: General/Supplemental Anesthesiologist: Aj Calixto Special Medications: ancef 2 grams IV x 1 Specimen's removed: 1. known + right SNL w clip, 2. additional right SNL, 3. right lumpectomy Estimated Blood Loss (mL): 10 cc Description of Procedure: Synoptic Portion: Element Response Options Operation performed with curative intent. Yes Tracer(s) used to identify sentinel nodes in the upfront surgery (non- neoadjuvant) setting (select all that apply). Lymphazurin and radioactive tracer Tracer(s) used to identify sentinel nodes in the neoadjuvant setting (select all that apply). N/AA All nodes (colored or non-colored) present at the end of a dye-filled lymphatic channel were removed. Yes All significantly radioactive nodes were removed. Yes All palpably suspicious nodes were removed. Yes Biopsy-proven positive nodes marked with clips prior to chemotherapy were identified and removed. Yes Description of procedure In radiology the breast tissue was injected with TC-9 9 sulfur colloid. 90 minutes later the patient was taken to the operating room and general anesthesia was induced. 5 cc of Lymphazurin 1% blue dye was injected in the 4 quadrants periareolar along with 10 cc of normal saline. This was massaged gently for 5 minutes. The right breast and axilla were prepped and draped in usual sterile fashion. A timeout was completed verifying correct patient, procedure, site, positioning, special equipment prior to beginning procedure. Handheld gamma probe was used to identify the location of the hottest spot in the axilla. Prior to the incision, the counts were 120. The known positive right axillary lymph node was also located using ultrasound guided needle localization with a Kopan's wire. The incision was made in the lower axillary hairline and the previous node was identified. The probe was placed in contact with the node in the 10 count was 5348. The bed of the node measured 80 counts. Additional hot node was removed with a 10 count of 621. The bed of node count measured 21. No additional blue or hot nodes were detected. Known positive node was sent for x-ray and clip was confirmed. On frozen 1 lymph node was po sitive and 1 was negative. A curvilinear at the areolar border at 3-4 o'clock incision was planned in such a way as to minimize the amount of dissection to reach the mass. Ultrasound- guided localization was done using the Kopan's needle. Flaps were raised in the location of the wire confirmed. The wire was delivered into the wound. 2 silk ogsdde-xs-kqbjf stay suture was placed around the wire and used for traction. Dissection was then taken down circumferentially, taking care to include the entire localization needle and wide margin of grossly normal tissue. The area did appear very close to the nipple as well as chest wall. If additional margins are needed patient would lose the nipple areolar complex. 3 medium size clips were placed at the posterior cavity for localization for r adiology. The specimen and entire localizing wire were removed. The specimen was oriented and sent to radiology with the localization studies. Confirmation was received that the entire target lesion had been resected. The cavities were irrigated. Hemostasis was checked. The breast and axillary incisions were closed with interrupted sutures of 3-0 Vicryl and subcuticular sutures of 4-0 Monocryl. No attempt was made to close the space. A dressing of fluff gauze and supportive bra placed. The patient tolerated procedure well was taken to the postanesthesia care in stable condition. Grafts/Implants Used: none Complications none
[2022-02-05] MEDS: Bupivacaine 0.25% 30 ML Vial (13:23)
--- NOTE | 2022-02-05 13:27 | DCINST_ITS ---
Discharge Instructions Diet Discharge Diet: No restrictions Activity Discharge Activity: May Not Drive (for 2-3 days or while taking narcotic pain meds.) May shower in (days): 1 Lifting Restrictions: 10 pounds for 1 week. Dressing / Incision Call your doctor if your incision/area has: Continuous Slow Oozing, Sudden Increased Bleeding, Increased Pain/ Swelling and Increased Redness Call your doctor if you observe: Fever of 101 or Higher Suture Line Care: Avoid Pulling/Pushing and Avoid Pinching/Bending Remove Dressing in: 1 day Additional Dressing/Incision Instructions:: Remove bulky dressing tomorrow. May leave any op-site dressing for 3-4 days. Dermabond (glue) was used at the axillary incision this may start to peel off in about 5 days. Okay to remove Steri-Strips from the breast incision in 7 to 10 days with annual follow-up. Follow Up Care Please Follow Up With: Caron Simeon MD When: Please call [phone] for an appointment to be seen in 2 week. Test Results: Test results from this visit will be discussed in further detail at your follow- up appointment, if applicable. Discharge Plan Admission Attending Provider: Caron Simeon Primary Care Provider: Domenic Hector Instructions Additional Instructions / Restrictions: Okay to take Tylenol 650 mg p.o. every 6hrs as needed pain as well as ibuprofen 2 to 600 mg p.o. every 6 hours as needed for pain. Discharge Orders/Prescriptions Prescriptions: No Action multivitamin with minerals Capsule 1 cap PO DAILY Referrals / Follow Up: Domenic Hector MD [Primary Care Provider] - Disposition Disposition (needs filled in before D/C Order can be placed): Home, Self Care
[2022-02-05 13:47] VITALS: BP 141/91; BP 146/98; PULSE 83; RESP 16; TEMP 37.3; O2SAT 99
[2022-02-05 14:00] VITALS: BP 144/76; BP 146/98; PULSE 83; RESP 16; O2SAT 92
[2022-02-05 14:15] VITALS: BP 138/74; BP 146/98; PULSE 79; RESP 16; O2SAT 93
[2022-02-05 14:30] VITALS: BP 140/81; BP 146/98; PULSE 74; RESP 16; TEMP 37.1; O2SAT 92
[2022-02-05] MEDS: Acetaminophen 325 MG Tablet 650 MG PO (14:57)
[2022-02-05 15:30] VITALS: BP 146/98; BP 147/74; PULSE 86; RESP 16; TEMP 36.4; O2SAT 95
== END 2022-02-05 15:39 | disposition home or self-care (01) ==
LOC: SDC 08:37 → AC 08:38
PROVIDERS: PCP Internal Medicine; Referring Provider Surgery; Visit Provider Surgery
PROC: (CPT 19301; principal; 2022-02-05 10:45)
DX: C50.911 Malignant neoplasm of unspecified site of right female breast (principal); C77.3 Secondary and unspecified malignant neoplasm of axilla and upper limb lymph nodes; I10 Essential (primary) hypertension
CPT/HCPCS: 19301; 38525; 38900; 19285; 00404; 38792; 76098; 88305; 88307; 88331; 88341; 88342; A9541; J7120; J2405; J3490; Q9968

== ENCOUNTER 2022-02-17 09:39 | Day surgery (SDC) | payer MEDICARE, SELFPAY ==
[2022-02-17] VITALS (8 sets, daily range): BP systolic 115–136; BP diastolic 62–90; PULSE 90–104; RESP 16–18; TEMP 37–37.3; O2SAT 93–97; BMI 33.5
[2022-02-17] MEDS: Lactated Ringers 1,000 ML 15 ML IV ×2 (10:32→13:05)
--- NOTE | 2022-02-17 10:54 | PCM.HP.BLA ---
History and Physical Date of Admission: 02/17/22 02/05/22 0854 MR#:? [id number] Acct: [id number] Name: LEYLA COLÓN Rep #: [id number] :? 1955 66 From:? Caron Simeon MD PCP: Dr. Domenic Hector MD ? [place] [facility] [place] [address] History and Physical Date of Admission: 02/05/22 Date of Service:? 01/18/22MR#: [id number] Acct: [id number] Name:? LEYLA COLÓN Rep #: [id number] : 1955 ? ? Provider: Dr. Caron Simeon MD Age/Sex:? 66/F ? ? Location: [facility] Status: Signed Intake Vital Signs ?? 12/03/2213:18 Height? 5 ft 7 in Intake Visit Reasons:?F/U MRI Results [facility] 01/12 Chief Complaint: Right breast birads Allergies No Known Allergies Allergy (Verified 01/18/22 14:04) Medications multivitamin with minerals 1 cap PO DAILY 12/03/21 [History Confirmed 01/18/22] lorazepam 1 mg tablet (Ativan) 1 mg PO DAILY anxiety #2 tabs 12/24/21 [Rx Confirmed 01/18/22] PFSH Medical History?(Updated 01/18/22 @ 14:[address] Caron Simeon MD) Abnormal MNB-ol-wbtsqkplfm ratio Anxiety and depression History of breast lump Hypertension Invasive ductal carcinoma of right breast Kidney disease 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 Surgical History? History of tonsillectomy Hx of tubal ligation Family History? Other Asthma Depression Social History? Smoking Status:? Never smoker alcohol intake:? never substance use type:? does not use what type of physical activity do you participate in:? 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 ROS General General: Yes breast cancer; No fatigue or weakness Endo Endocrine: No cold intolerance Skin Skin: No rash Breast Breast: Yes right breast lump and abnormal US; No left breast lump, nipple discharge or breast pain Cardio Cardiovascular: No chest pain Psych Psychiatric: No depression Resp Respiratory: No shortness of breath Gastro Gastrointestinal: No abdominal pain, No diarrhea and No constipation Neuro Neurologic: No weakness Exam Const General: cooperative, healthy appearing, comfortable and no acute distress Neck Neck: normal visual inspection Chest Other: Right breast: Inversion of the right nipple due to retroareolar breast mass.? MRI does look as if we are able to get the mass without having to take the full areolar complex. 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 ? ? Orders: Referrals Oncology ?? C50.911 - Malignant neoplasm of unspecified site of right female breast, C50.919 - Malignant neoplasm of unspecified site of unspecified female breast, C77.3 - Secondary and unspecified malignant neoplasm of axilla and upper limb lymph nodes ? Plan Did review patient's pathology results with her patient and her daughter via phone.? Also reviewed MRI images with the patient and personally reviewed. I have given the patient options for initial surgical treatment. Options are the following: lumpectomy followed by radiation therapy vs. mastectomy vs. mastectomy followed by immediate reconstruction. I have described the procedures to the patient. I have described the advantages and disadvantages of the options, but I have told the patient that among the options, the survival rate for breast cancer is the same. I have told the patient that with all the surgeries that a sentinel lymph node biopsy is required and would also be removing her positive node with ultrasound-guided wire localization. I have described the procedure of sentinel lymph node biopsy to the patient. 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 I have told the patient that adjuvant chemotherapy may be recommended depending on Oncotype DX score as we know that one of her nodes is already positive. Also, a full lymph node dissection will increase the risk for lymphedema, especially if there are 4 or more lymph nodes positive for metastatic disease and radiation to the axilla is also required--again we are planning to not do axillary lymph node dissection initially but will get any hot/blue/palpable lymph nodes. I have told the patient the risks of surgery, including but not limited to: infection, bleeding, scar tissue, seroma and persistent seroma, lymph leak, injury to any blood vessels, injury to any nerves (particularly the long thoracic, the thoracodorsal, and the second intercostal brachial and the resultant sequelae), lymphedema, cosmetic deformity, dysesthesias, wound infections, further surgery (especially if margins are not clear), complications of anesthesia, etc.? the patient understands.? Patient has appointment with Dr. Nunez to make sure she understands what would be required with radiation.? As she is planning to do right ultrasound-guided needle localization lumpectomy, ultrasound guided needle localization of positive right axillary node, sentinel lymph node biopsy with nuclear tracer and blue dye?hoping to save the nipple areolar complex as there appears to be enough room on MRI.? Surgery is tentative scheduled for the week of February 01. Caron Simeon M.D. Pager: [phone] [facility] [address] [place] [address], [facility], [address] [place] [address] Office: [phone] Coding Level of Care Code Off vis,est,level 5 Diagnoses Invasive ductal carcinoma of right breast? 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 C50.919; C77.3 01/20/22 0752 <Electronically signed by Caron Simeon MD> Date Caron Simeon MD 02/05/22 0855 <Electronically signed by Caron Simeon MD> Cosigner Signature (if applicable): ? CC:? Dr. Domenic Hector MD; Dr. Caron Simeon MD~ Signed ADDENDUM by Dr. Caron Simeon MD on 02/05/22 at 1033 Addendum I have examined the patient and the H&P has been reviewed. There are no clinical changes since date of exam.? Did discuss with patient Plan to do the axillary lymph node dissection today would be the nuclear tracer and blue dye did not trace to any other nodes to give us information on the sentinel nodes.? Patient was agreeable for Axillary lymph node dissection in that case otherwise we will plan to come back another day if it is needed.? Patient and daughter are agreeable plan. 02/05/22 1033<Electronically signed by Caron Simeon MD> Cosigner Signature (if applicable):?
--- NOTE | 2022-02-17 11:25 | BREAST_PTH ---
PATIENT: LEYLA COLÓN [place] [facility] [place] U[place][id number] AGE/SX: 66/F ROOM: RE02/17/[address]: Dr. Caron Simeon MD : 1955 BED: DIS: 02/17/2022 SPEC #: [id number] RECD: 02/17/22 16:36 STATUS: JADA MOSHE #: [id number] GERALD: 02/17/22 11:[address]: Caron Simeon DEPT: SURGICAL PATHOLOGY RECD BY: Godwin Baptiste ENTERED: 02/18/22 10:29 SP TYPE: BREAST OTHR DR: Dr. Domenic Hector MD Tissues: Right breast, NOS Procedures: Surgery Specimen Level V HEADER OPERATION: Excision breast lumpectomy PRE-OP DIAGNOSIS: Invasive ductal carcinoma of right breast TISSUE SUBMITTED: Right breast new superior margin, long stitch - lateral, short stitch - new superior margin MICROSCOPIC DIAGNOSIS Right breast new superior margin, lumpectomy: Fibrosis, granulation and benign histiocytic proliferation consistent with previous biopsy. Fibrocystic change. Focal intraductal hyperplasia without atypia. Banal microcalcifications. No evidence of malignancy. AM:olamide 02/23/2022 COMMENT Reference is made to the patient's previous right breast biopsy ([id number]) in which invasive ductal carcinoma was identified. MICROSCOPIC DESCRIPTION Slides are reviewed. GROSS DESCRIPTION Received in fixative is one container labeled with the patient's name and designated right breast new superior margin, long stitch - lateral, short stitch - new superior margin. The specimen consists of a piece of coreas-yellow fibroadipose tissue measuring 4 x 1.5 x 1.5 cm. The specimen is oriented as follows: long stitch - lateral, short stitch - new superior margin. The specimen is inked as follows: new superior margin - black, old margin - blue, lateral margin - orange, medial margin - red. The sections reveal coreas-yellow adipose cut surfaces with scant fibrous areas. No mass lesion is identified. The specimen is serially sectioned and submitted entirely in seven cassettes. Cassette 1 contains the most medial margin and cassette 7 contains the lateral margin. Sections will be submitted after additional fixation. / RICKIE:olamide 02/18/2022 TC:5 CPT: 98320
[2022-02-17] MEDS: Cefazolin 2 GM in 0.9% Normal Saline 100 ML IV (11:36)
--- NOTE | 2022-02-17 12:11 | PCM.OPRPT ---
Report of Operation Date of Procedure: 02/17/22 Pre-Operative Diagnosis: Right breast cancer, positive superior margin Post-Operative Diagnosis: Same Surgery/Procedure Performed:: Reexcision of superior margin right breast Surgeon: Caron Simeon Type of Anesthesia: General/Supplemental Anesthesiologist: Glen Lara Special Medications: Ancef 2 g IV x1 Specimen's removed: New superior margin right breast Estimated Blood Loss (mL): < 10 cc Description of Procedure: Patient was brought to the operating room placed by operating table. Timeout was completed verifying correct patient, procedure, site, positioning, special equipment prior to beginning procedure. General anesthesia was induced. Patient's right breast was prepped and draped in usual sterile fashion. Previous circular linear incision at the 4- 5:00 areolar border was reincised with 15 blade scalpel. Seroma cavity was suction. The deep margin was identified due to the previous clips placed and a new superior margin was taken with electrocautery. This was marked long stitch lateral and short stitch new superior margin and sent to pathology. Cavity was irrigated sterile water. Incision was closed with 3-0 Vicryl subdermal sutures and skin with running 4-0 Monocryl. Steri-Strips were placed. Patient tolerated procedure well and was taken to the postanesthesia care unit in stable condition. Complications none
--- NOTE | 2022-02-17 12:15 | EX.PCM.DISCH ---
Discharge Instructions Diet Discharge Diet: No restrictions Activity Discharge Activity: May Not Drive (for 2-3 days or while taking narcotic pain meds.) May shower in (days): 1 Lifting Restrictions: 10 pounds for 1 week. Dressing / Incision Call your doctor if your incision/area has: Continuous Slow Oozing, Sudden Increased Bleeding, Increased Pain/ Swelling and Increased Redness Call your doctor if you observe: Fever of 101 or Higher Suture Line Care: Avoid Pulling/Pushing and Avoid Pinching/Bending Remove Dressing in: 1 day Additional Dressing/Incision Instructions:: Remove bulky dressing tomorrow. May leave any op-site dressing for 3-4 days. Okay to remove Steri-Strips from the breast incision in 7 to 10 days with annual follow-up. Follow Up Care Please Follow Up With: Caron Simeon MD When: Please call [phone] for an appointment to be seen in 2 week. Test Results: Test results from this visit will be discussed in further detail at your follow-up appointment, if applicable. Discharge Plan Admission Attending Provider: Caron Simeon Primary Care Provider: Domenic Hector Discharge Orders/Prescriptions Prescriptions: No Action multivitamin with minerals Capsule 1 cap PO DAILY lorazepam [Ativan] 1 mg Tablet 1 mg PO DAILY PRN (Reason: Anxiety) Referrals / Follow Up: Domenic Hector MD [Primary Care Provider] - Disposition Disposition (needs filled in before D/C Order can be placed): Home, Self Care
[2022-02-17] MEDS: Bupivacaine 0.25%-Epi/Pf 1:200,000 10 ML (12:19)
== END 2022-02-17 14:26 | disposition home or self-care (01) ==
LOC: SDC 09:40 → AC 09:41
PROVIDERS: PCP Internal Medicine; Referring Provider Surgery; Visit Provider Surgery
PROC: (CPT 19301; principal; 2022-02-17 11:10)
DX: C50.911 Malignant neoplasm of unspecified site of right female breast (principal); C77.3 Secondary and unspecified malignant neoplasm of axilla and upper limb lymph nodes; I10 Essential (primary) hypertension; F32.A Depression, unspecified
CPT/HCPCS: 19301; 00404; 88307; J7120; J2405

== ENCOUNTER → 2022-03-08 | Outpatient (CLI) | payer MEDICARE, SELFPAY ==
--- NOTE | 2022-03-08 09:50 | NM_ITS ---
CLINICAL: 66-year-old female with history of primary breast carcinoma. WHOLE BODY 99m Tc MDP RADIONUCLIDE BONE SCINTIGRAPHY COMPARISON: None available FINDINGS: Following the intravenous administration of 28.0 mCi of 99m Tc MDP, whole body bone images reveal: 1. Increased tracer uptake is noted in the acromioclavicular and sternoclavicular compartments of both shoulders, partially visualized right elbow, mid cervical spine posteriorly on the left, ninth and 10th thoracic, fifth lumbar vertebra, the patellofemoral compartments of both knees, anterior tibial compartment in the midline of the right knee, the left hip. 2. The remaining skeletal structures are scintigraphically unremarkable with normal-appearing renal images and urinary bladder activity identified. Uptake is noted in the left mandible most consistent with periostitis. NM/Bone Scan Whole Body IMPRESSION: 1. The increase in radiopharmaceutical defined in the bilateral shoulders, right elbow, cervical, thoracic and lumbar spine, knees bilaterally and left hip articulation. 2. There is no scintigraphic evidence of diffuse axial skeletal metastatic disease. Electronically Signed: Harris Fox, at 21:46 EST ,
== END | disposition home or self-care (01) ==
LOC: NM 09:49
PROVIDERS: PCP Internal Medicine; Visit Provider Internal Medicine Medical Oncology
DX: Z85.3 Personal history of malignant neoplasm of breast (principal)
CPT/HCPCS: 78306; A9503

== ENCOUNTER → 2022-03-10 | Outpatient (CLI) | payer MEDICARE, SELFPAY ==
--- NOTE | 2022-03-10 13:11 | CT_ITS ---
STUDY: CT CHEST, ABDOMEN T PELVIS WITH CONTRAST REASON FOR EXAM: Female, 66 years old. INITIAL STAGING FOR BREAST CANCER. Status post right lumpectomy and lymph node resection. RADIATION DOSAGE (If Supplied By Facility): CTDIvol = ( 16.10 ) mGy, DLP = ( 1353.53 ) mGycm TECHNIQUE: Transaxial imaging was performed following intravenous administration of IV 100mL Isovue-300. Multiplanar coronal and sagittal images were reformatted. Individualized dose optimization techniques were used for this CT. COMPARISON: Comparison is made with prior CT scan of the abdomen dated 05/17/2021. FINDINGS: CHEST Surgical clips are seen in the right axillary region. Postoperative changes are seen in the deep portion of the right breast with a tissue clip marker is seen within it. Minimal increased markings at the lung bases suggest mild basilar atelectasis. There is a 1.9 cm bulla in the posterior medial segment of the left lower lobe. There is no demonstrated pleural abnormality. Normal heart and pericardium. Normal mediastinum. Normal hilar regions. Normal unenhanced pulmonary arteries. Normal aorta arch and descending thoracic aorta. There are multi-level degenerative changes of the thoracic spine. Increased kyphosis. Almost complete collapse of the L2 vertebrae. ABDOMEN Normal liver. Normal gallbladder and extrahepatic biliary system. Normal spleen. Normal pancreas. Normal bilateral adrenal glands. Normal right kidney. The previously seen nonobstructive left intrarenal calculi are not seen at this time. Minimal fullness of the left renal pelvis. There is a small hiatal hernia. Normal small intestine. Normal colon. The appendix is visualized and appears normal. There is scattered atherosclerotic calcification of the abdominal aorta, without a demonstrated aneurysm. Normal inferior vena cava. Normal retroperitoneum. Normal abdominal wall. Almost complete collapse of the L2 vertebrae with mild retropulsion suggestive of old injury. PELVIS Normal urinary bladder. There is no pelvic fluid. There is no pelvic lymphadenopathy or mass lesion. Normal visualized pelvic arteries. CT/CT Chest, Abd, Pel w/Contrast IMPRESSION: Status post right lumpectomy with post operative changes seen in the deep portion of the right breast. Right axillary surgical clips. Almost complete collapse of the L2 vertebrae. Electronically Signed: Vick Simmons MD at 14:51 EST ,
[2022-03-10 13:51] LABS: CREATININE FINGERSTICK < 0.9 mg/dL (0.55-1.02); EGFR FINGERSTICK > 60.0000 mL/min (>60)
== END | disposition home or self-care (01) ==
LOC: CT 13:10
PROVIDERS: PCP Internal Medicine; Visit Provider Internal Medicine Medical Oncology
DX: C50.919 Malignant neoplasm of unspecified site of unspecified female breast (principal)
CPT/HCPCS: 71260; 74177; Q9967

== ENCOUNTER → 2022-03-25 | Outpatient (CLI) | payer MEDICARE, SELFPAY ==
--- NOTE | 2022-03-25 11:10 | BD_ITS ---
STUDY: DUAL ENERGY X-RAY ABSORPTIOMETRY / DXA REASON FOR EXAM: Female, 66 years old. SCREENING FOR OSTEOPOROSIS TECHNIQUE: Bone Mineral Density (BMD) measurements of lumbar spine and bilateral hips were obtained. COMPARISON: None. FINDINGS: Lumbar Spine (L1-L4): g/cm2 (0.931) / T-score (-1.5) / Z-score (0.6) Findings are suggestive of osteopenia with a low fracture risk. Left Femur Total: g/cm2 (0.858) / T-score (-0.7) / Z-score (0.8) Left Femoral Neck: g/cm2 (0.749) / T-score (-0.9) / Z-score (0.8) Right Femur Total: g/cm2 (0.800) / T-score (-1.2) / Z-score (0.3) Right Femoral Neck: g/cm2 (0.732) / T-score (-1.1) / Z-score (0.7) BD/Dexa Bone Density Study IMPRESSION: The patient is considered osteopenic as outlined below according to World Javier Organization (WHO) criteria with a low fracture risk. Reference Information: The T-score is the number of standard deviations above or below the standard which is normal for young adults at their peak bone mineral density. The World Health Organization (WHO) interprets the T-scores as follows: Above -1 Normal bone density Between -1 and -2.5 Osteopenia Equal to / or below -2.5 Osteoporosis As a practical clinical guideline, osteopenia may be graded as follows: Mild -1 through -1.5 Moderate -1.6 through -2.0 Severe -2.1 through -2.4 The Z-score is the number of standard deviations above or below age-matched controls. A Z-score of less than -1.5 would be considered abnormal. References: 1. NIH Osteoporosis and Related Bone Diseases www osteo.org 2. International Society for Clinical Densitometry www iscd.org 3. National Osteoporosis Foundation www nof.org Electronically Signed: Vick Simmons MD at 14:46 EST ,
== END | disposition home or self-care (01) ==
LOC: OPBD 10:45
PROVIDERS: PCP Internal Medicine; Visit Provider Internal Medicine Medical Oncology
DX: M85.88 Other specified disorders of bone density and structure, other site (principal)
CPT/HCPCS: 77080

== ENCOUNTER → 2022-12-20 | Outpatient (CLI) | payer MEDICARE, SELFPAY ==
--- NOTE | 2022-12-20 12:31 | BI_ITS ---
MAMMOGRAPHY - BILATERAL SCREENING REASON FOR EXAM: Female, 67 years old. Routine annual screening examination. PERTINENT HISTORY: Personal history of breast cancer. Prior right lumpectomy and radiation treatment. TECHNIQUE: Digital bilateral breast marielle (3D mammographic acquisition) in the CC and MLO projections. 2-D mediolateral oblique (MLO) and craniocaudad (CC) views of both breasts were obtained. CAD: Full Field Digital Mammography with Computer Added Detection was performed. COMPARISON: Comparison is made with prior mammogram dated December 18, 2021 and February 05, 2022. FINDINGS: Breast Composition: There are scattered areas of fibroglandular density. There are no dominant masses or suspicious calcifications. Since prior study, the patient underwent lumpectomy in the deep inferior central portion of the right breast with resultant postoperative scarring and skin thickening. Surgical clips are also seen in the right axillary region. No other significant abnormalities are identified. BI/SCRN MAMM (CAD)W/MARIELLE BILAT IMPRESSION: Status post lumpectomy in the deep inferior central portion of the right breast with resultant postoperative scarring and breast deformity. Yearly follow-up mammogram recommended. (A) ASSESSMENT CATEGORY: BIRADS Category 2: Benign. A letter regarding these results will be sent to the patient by the facility within 30 days. Approximately 10% of breast cancers are not detected by mammography. A normal mammogram should not delay biopsy of a clinically suspicious abnormality. [id number] Electronically Signed: Vick Simmons MD at 14:19 EDT ,
== END | disposition home or self-care (01) ==
LOC: OPBI 12:30
PROVIDERS: PCP Internal Medicine; Referring Provider Nurse Practitioner Family; Visit Provider Nurse Practitioner Family
DX: Z12.31 Encounter for screening mammogram for malignant neoplasm of breast (principal); C77.3 Secondary and unspecified malignant neoplasm of axilla and upper limb lymph nodes; C50.911 Malignant neoplasm of unspecified site of right female breast
CPT/HCPCS: 77063; 77067

== ENCOUNTER → 2023-01-10 | Outpatient (CLI) | payer MEDICARE, SELFPAY ==
--- NOTE | 2023-01-10 14:24 | CT_ITS ---
INDICATION: Fever and cough, history of breast cancer EXAMINATION: CT CHEST WITH CONTRAST - CT Chest W/ Contrast Injection TECHNIQUE: Helically acquired images were obtained of the chest following IV contrast. A radiation dose optimization technique was used for this scan. IV Contrast dosage and agent: COMPARISON: 03/10/2022 FINDINGS: LUNGS, PLEURA AND LARGE AIRWAYS: Lung windows show chronic interstitial changes in both lung ellison with a spiculated density in the right middle lobe on axial image 45 may be a metastasis but could also be explained if there has been radiation therapy to this area. No organized infiltrate or effusion, no suspicious other noncalcified mass or nodule noted. THYROID: No thyroid lesions. HEART AND PERICARDIUM: Heart size is normal. No pericardial effusion. VESSELS: Thoracic aorta is not dilated. No aortic dissection. No obvious central pulmonary embolism although this study was not performed with the pulmonary embolism protocol. MEDIASTINUM AND YARIEL: No suspicious axillary, mediastinal or hilar adenopathy. Esophagus is unremarkable. No hiatal hernia. UPPER ABDOMEN: Limited cuts through the upper abdomen do not show a suspicious abnormality, there is persistent prominence/dilatation to the proximal left ureter unchanged from the previous study. BONES: No suspicious lytic or blastic abnormality. Bony structures show degenerative change CT/Chest WITH Contrast IMPRESSION: Chronic interstitial changes in both lung ellison with interstitial edema and a noncalcified spiculated nodule in the right middle lobe on axial image 45 measuring 1 cm. This could be metastasis but could also be sequela from radiation therapy. No organized infiltrate or effusion, no other suspicious noncalcified mass or nodule Degenerative bony changes No suspicious adenopathy Electronically Signed: Aime Dominguez MD at 15:09 EST ,
[2023-01-10 14:59] LABS: CREATININE FINGERSTICK < 0.9 mg/dL (0.55-1.02); EGFR FINGERSTICK > 60.0000 mL/min (>60)
== END | disposition home or self-care (01) ==
LOC: CT 14:21
PROVIDERS: PCP Internal Medicine; Referring Provider Nurse Practitioner Family; Visit Provider Nurse Practitioner Family
DX: C50.919 Malignant neoplasm of unspecified site of unspecified female breast (principal); C77.3 Secondary and unspecified malignant neoplasm of axilla and upper limb lymph nodes; R05.9 Cough, unspecified; Z98.890 Other specified postprocedural states
CPT/HCPCS: 71260; Q9967

== ENCOUNTER → 2023-08-11 | Outpatient (CLI) | payer MEDICARE, SELFPAY ==
--- NOTE | 2023-08-11 12:46 | CT_ITS ---
STUDY: CT CHEST WITH CONTRAST REASON FOR EXAM: Female, 68 years old. MONITOR LUNG NODULE/HX OF RIGHT BREAST CA-RADIATION RADIATION DOSAGE (If Supplied By Facility): CTDIvol = ( 9.43 ) mGy, DLP = ( 276.34 ) mGycm TECHNIQUE: Transaxial imaging was performed following intravenous administration of IV 100mL Isovue-300. Multiplanar coronal and sagittal images were reformatted. Individualized dose optimization techniques were used for this CT. COMPARISON: Comparison is made with prior study dated January 10, 2023. FINDINGS: CHEST Surgical clips are seen in the right axilla. Postoperative changes are seen in the deep portion of the right breast. The previously seen spiculated density in the anterior aspect of the right middle lobe has decreased in size. It presently measures 6.2 mm. This may represent a focal area of post radiation fibrosis. Stable linear scarring at the lung bases. There is no demonstrated pleural abnormality. Normal heart and pericardium. No significant coronary artery calcification is seen. Normal mediastinum. Normal hilar regions. Normal unenhanced pulmonary arteries. Normal aorta arch and descending thoracic aorta. There are multi-level degenerative changes of the thoracic spine. There is no demonstrated abnormality of the visualized upper abdomen. CT/Chest WITH Contrast IMPRESSION: Findings suggestive of scarring in the anterior aspect of the right middle lobe with interval decrease in size of the spiculated nodule. Electronically Signed: Vick Simmons MD at 14:57 EDT ,
[2023-08-11 13:09] LABS: CREATININE FINGERSTICK < 1.0 mg/dL (0.55-1.02); EGFR FINGERSTICK > 60.0000 mL/min (>60)
[2023-08-11 13:29] LABS: Absolute Lymphocyte Count 1.58 X10^3/uL (0.83-4.51); Basophil# 0.05 X10^3/uL; Basophil% 0.8 % (0-1); Eosinophil# 0.13 X10^3/uL; Eosinophils% 2.1 % (0-5); Lymphocyte # 1.58 X10^3/ul (0.83-4.51); Lymphocyte % 25.1 % (19-41); Mean Corp Hgb Conc 31.8 g/dL (32-36); Mean Corpuscular Hgb 28.5 pg (27.0-32.0); Mean Corpuscular Volume 89.4 fL (81-99); Mean Platelet Vol. 10.2 fl (6.2-12.0); Monocyte# 0.52 X10^3/uL; Monocyte% 8.3 % (0-10); NRBC Flagged by Analyzer 0 % (0-5); Neutrophil # 3.99 X10^3/uL (2.7-7.7); Neutrophil % 63.2 % (47-70); Platelet Count 234 K/mm3 (150-450); RBC Distribution Width CV 13.1 % (11.6-14.6); RBC Distribution Width SD 42.4 fl (35.1-43.9); Red Blood Count 4.92 M/mm3 (4.2-5.4); White Blood Count 6.3 K/mm3 (4.4-11.0)
[2023-08-11 13:54] LABS: AST(SGOT) 27 U/L (15-37); Alanine Aminotransfer ALT/SGPT 31 U/L (13-56); Albumin, Serum 3.7 g/dL (3.2-5.0); Alkaline Phosphatase 57 U/L (45-117); Anion Gap 4 (5-15); BUN 24 mg/dL (7-18); BUN/Creat Ratio 34.5 RATIO (10-20); Calcium,Total 9.2 mg/dL (8.5-10.1); Chloride 107 mmol/L (98-107); EST Glomerular Filtration Rate 88 mL/min (>60); Est Glom Filt Rate - Afr Amer 107 mL/min (>60); Globulin 3.7 g/dL (2.2-4.2); Glucose 94 mg/dL (74-106); LDH 238 U/L (84-246); Potassium 4.3 mmol/L (3.5-5.1); Protein, Total 7.4 g/dL (6.4-8.2); Sodium Level 137 mmol/L (136-145)
== END | disposition home or self-care (01) ==
PROVIDERS: PCP Internal Medicine; Referring Provider Internal Medicine Medical Oncology; Visit Provider Internal Medicine Medical Oncology
DX: R91.8 Other nonspecific abnormal finding of lung field (principal); Z85.3 Personal history of malignant neoplasm of breast
CPT/HCPCS: 36415; 71260; 80053; 83615; 85025; Q9967

== ENCOUNTER → 2023-12-22 | Outpatient (CLI) | payer MEDICARE, SELFPAY ==
--- NOTE | 2023-12-22 14:13 | BI_ITS ---
MAMMOGRAPHY - BILATERAL SCREENING REASON FOR EXAM: Female, 68 years old. Routine annual screening examination. PERTINENT HISTORY: Personal history of breast cancer. Prior right lumpectomy with radiation therapy. TECHNIQUE: Digital bilateral breast marielle (3D mammographic acquisition) in the CC and MLO projections. 2-D mediolateral oblique (MLO) and craniocaudad (CC) views of both breasts were obtained. CAD: Full Field Digital Mammography with Computer Added Detection was performed. COMPARISON: Comparison is made with prior study dated December 20, 2022 and January 1622. FINDINGS: Breast Composition: There are scattered areas of fibroglandular density. There are no dominant masses or suspicious calcifications. Once again, the patient is status post lumpectomy in the deep central aspect of the right breast with resultant postoperative scarring and skin thickening. Surgical clips are also seen in the right axilla. No other significant abnormalities are identified. There has been no significant change since the prior study. BI/SCRN MAMM (CAD)W/MARIELLE BILAT IMPRESSION: Stable bilateral screening mammogram. Yearly follow-up mammogram recommended. (A) ASSESSMENT CATEGORY: BIRADS Category 2: Benign. A letter regarding these results will be sent to the patient by the facility within 30 days. Approximately 10% of breast cancers are not detected by mammography. A normal mammogram should not delay biopsy of a clinically suspicious abnormality. [id number] Electronically Signed: Vick Simmons MD at 15:11 EDT ,
== END | disposition home or self-care (01) ==
LOC: OPBI 14:13
PROVIDERS: PCP Internal Medicine; Referring Provider Internal Medicine Medical Oncology; Visit Provider Internal Medicine Medical Oncology
DX: Z12.31 Encounter for screening mammogram for malignant neoplasm of breast (principal); Z85.3 Personal history of malignant neoplasm of breast
CPT/HCPCS: 77063; 77067

== ENCOUNTER → 2024-08-09 | Outpatient (CLI) | payer MEDICARE, SELFPAY ==
--- NOTE | 2024-08-09 12:26 | CT_ITS ---
PROCEDURE: CHEST WITH CONTRAST 08/09/2024 REASON FOR EXAM: R LUNG NODULE, HX OF BREAST CA History of prior right lumpectomy. TECHNIQUE: CHEST WITH CONTRAST Coronal and Sagittal reconstruction series were provided. CONTRAST: Isovue 370 VOLUME: 100 mL One or more dose reduction techniques were used (e.g., Automated exposure control, adjustment of the mA and/or kV according to patient size, use of iterative reconstruction technique). RADIATION DOSE SUMMARY: CTDlvol: 8 mGy DLP: 465.82 mGycm COMPARISON: Prior study dated August 11, 2023. FINDINGS: Hardware: Surgical clips are seen in the right axilla. Stable postsurgical changes at the deep aspect of the right breast. Lymph nodes: No suspicious lymph nodes are seen. Heart and Vasculature: Heart is nonenlarged. No significant coronary artery calcification is seen. Lungs and Airways: Stable linear scarring in the anterior aspect of the right middle lobe most likely secondary to prior radiation therapy if patient received radiation. Stable 6 mm nodule at that site. Stable scarring at the lung bases. Pleura: No evidence of pleural effusion. Upper Abdomen: Unremarkable Bones: Degenerative changes of the thoracic spine. CT/Chest WITH Contrast IMPRESSION: Coronary artery calcification (CAC) is is absent Stable examination. Reading Location: [place] [id number]
== END | disposition home or self-care (01) ==
LOC: CT 12:21
PROVIDERS: PCP Internal Medicine; Referring Provider Internal Medicine Medical Oncology; Visit Provider Internal Medicine Medical Oncology
DX: R91.1 Solitary pulmonary nodule (principal); Z85.3 Personal history of malignant neoplasm of breast
CPT/HCPCS: 71260; Q9967

== ENCOUNTER → 2025-01-09 | Outpatient (CLI) | payer MEDICARE, SELFPAY ==
--- NOTE | 2025-01-09 14:53 | BI_ITS ---
EXAM: SCRN MAMM (CAD)W/MARIELLE BILAT DATE: 01/09/2025 CLINICAL HISTORY: F, Age 69 y/o , SCREENING Personal history of breast cancer. Prior right lumpectomy and radiation therapy. TECHNIQUE: Procedure Code: [id number] Modality: MG Procedure: SCRN MAMM (CAD)W/MARIELLE BILAT COMPARISON: Prior exam(s) dated December 22, 2023.. FINDINGS: TISSUE DENSITY: There are scattered areas of fibroglandular density. Bilateral Breast Mammographic Findings: No significant masses, calcifications or other abnormalities are identified. Once again, the patient is status post lumpectomy in the deep central portion of the right breast with resultant postoperative scarring and skin thickening and breast deformity. Surgical clips are also seen in the right axilla. No suspicious masses, areas of developing architectural distortion, or suspicious calcifications. There has been no significant interval change. BI/SCRN MAMM (CAD)W/MARIELLE BILAT IMPRESSION: Stable bilateral screening mammogram. OVERALL FINAL ASSESSMENT BI-RADS 2: BENIGN RECOMMENDATION: Routine annual follow-up in 1 Year Additional Recommendation none A letter with findings and recommendations will be mailed to the patient. Reading Location: [facility]
--- OUTSIDE RECORDS SUMMARY | 2025-01-09 16:48 | XMS RPT_ITS | CCD ---
Author Organization [facility] CliniSymd Care Team Providers Care Early Childhood Services Coordinator Name Role Phone Mohit Tellez Unavailable Unavailable Care Physician, No Primary Primary Care Provider Unavailable Care Physician, No Primary Referring Provider Un available Dr. Domenic Hector Attending Provider [phone] Care Physician, No Primary Primary Care Provider Unavailable Care Physician, No Primary Referring Provider Un available Dr. Domenic Hector Attending Provider [phone] Dr. Domenic Hector Primary Care Provider [phone] Dr. Domenic Hector Referring Provider [phone] Dr. Caron Simeon Attending Provider Dr. Caron Simeon Referring Provider Dr. Caron Simeon Other Provider Dr. Edouard Ann Attending Provider Dr. Rahat Nunez Attending Provider Dr. Domenic Hector Primary Care Provider [phone] Dr. Domenic Hector Referring Provider [phone] Dr. Caron Simeon Attending Provider Dr. Rahat Nunez Attending Provider Dr. Domenic Hector Primary Care Provider [phone]) Dr. Domenic Hector Referring Provider [phone] Dr. Rahat Nunez Attending Provider Magui MEDICAL PATHOLOGY TEACHER, MEDICAL PATHOLOGY TEACHER-Shiloh Macdonald Attending Provider Dr. Domenic Hector MD Primary Care Provider Seth HOWARD, Dr. Nunn Attending Provider Seth HOWARD, Dr. Nunn Referring Provider [phone] Magui MEDICAL PATHOLOGY TEACHER-C, Renae Other Provider Krunal HOWARD, Dr. Sheth Referring Provider Magui MEDICAL PATHOLOGY TEACHER, Renae Consulting Unavailable Oleghe, Efewongbe Primary Care Unavailable Seth, Edouard Referring Unavailable Seth, Edouard Attending Unavailable Prabethany, Edouard Attending Unavailable Oleghe, Efewongbe Primary Care Unavailable Seth, Edouard Referring Unavailable Oleghe, Efewongbe Primary Care Unavailable Seth, Edouard Referring Unavailable Prabethany, Edouard Attending Unavailable Pra, Edouard Attending Unavailable Oleghe, Efewongbe Referring Unavailable Oleghe, Efewongbe Primary Care Unavailable Medications Current Medications Medication Drug Class(es) Dates Sig (Normalized) Sig (Original) Lactobacillus Combination No.4 (Probiotic) 3 billion cell capsule (5 sources) Start: 08-23-2023 take 3 capsules by mouth once daily as needed Lactobacillus Combination No.4 (Probiotic) 3 billion cell capsule Active 3000 NMA PO DAILY as needed August 23, 2023 3:36pm administer with a meal Start: 12-23-2022 End: 08-23-2023 take 3 capsules by mouth once daily Lactobacillus Combination No.4 (Probiotic) 3 billion cell capsule Discontinued 3000 NMA PO DAILY December 23, 2022 12:00am August 23, 2023 3:36pm administer with a meal Start: 12-23-2022 take 3 capsules by m outh once daily Lactobacillus Combination No.4 (Probiotic) 3 billion cell capsule Active 3000 MMU CELLS PO DAILY December 22, 2022 11:00pm administer with a meal magnesium oxide 500 mg oral capsule (3 sources) Start: 12-23-2022 take 1 capsule by mouth once daily Magnesium Oxide 500 mg capsule Active 500 mg PO DAILY December 23, 2022 12:00am Centre (Nk) (1 source) Start: 08-11-2022 Centre (Nk) A ctive August 11, 2022 12:00am Completed/Discontinued Medications Medication Drug Class(es) Dates Sig (Normalized) Sig (Original) acetaminophen 325 mg / HYDROcodone bitartrate 5 mg oral tablet (11 sources) Opioid Agonist Start: 05-17-2021 End: 12-03-2021 Hydrocodone-Acetami nophen 1 TABLET tablet Discontinued 1 {tbl} PO EVERY 6 HOURS NEEDED as needed for Pain 11 23May 17, 2021 December 03, 2021 2:11pm Start: 05-17-2021 End: 12-03-2021 take 1 tablet by mouth every six hours as needed Hydrocodone-Acetaminophen Discontinued 1 TABLET PO EVERY 6 HOURS NEEDED 10 May 17, 2021 December 03, 2021 1:11pm acetylcysteine 600 mg oral capsule (3 sources) Antidote, Mucolytic, Antidote for Acetaminophen Overdose Start: 12-23-2022 End: 08-23-2023 take 1 capsule by mouth once daily Acetylcysteine (Nac) 600 mg capsule Discontinued 600 mg PO DAILY December 23, 2022 12:00am August 23, 2023 3:36pm calcium ascorbate 500 mg oral tablet (3 sources) Start: 12-23-2022 End: 10-06-2023 take 1 tablet by mouth once daily Ascorbate Calcium (Vitamin C) 500 mg tablet Discontinued 500 mg PO DAILY December 23, 2022 12:00am October 06, 2023 2:07pm cholecalciferol 0.05 mg oral capsule (3 sources) Vitamin D Start: 12-23-2022 End: 10-06-2023 take 1 capsule by mouth once daily Cholecalciferol (Vitamin D3) 50 mcg (2,000 unit) capsule Discontinued 50 ug PO DAILY December 23, 2022 12:00am October 06, 2023 2:07pm LORazepam 1 mg oral tablet (11 sources) Benzodiazepine Start: 02-03-2023 End: 02-10-2023 Lorazepam 1 mg tablet Discontinued 1 mg PO DAILY as needed for prior to PET/CT February 03, 2023 1:00am February 10, 2023 2:33pm Administer 30 minutes prior to PET/CT Start: 02-12-2022 End: 04-14-2022 take 1 tablet by mouth once daily as needed for anxiety Lorazepam (Ativan) 1 mg Tablet Discontinued 1 mg PO DAILY as needed for Anxiety February 12, 2022 1:00am April 14, 2022 1:32pm Start: 12-24-2021 take 1 tablet by marti th every hour, then take 1 tablet by mouth once Lorazepam (Ativan) 1 mg tablet Active 1 MG PO DAILY December 23, 2021 11:00pm Take 1 tablet 1 hour prior to Breast MRI and take remaining tablet once arrived at MRI if needed Multivitamin With Minerals (9 sources) Start: 12-03-2021 End: 04-14-2022 take 1 capsule by mouth once daily Multivitamin With Minerals Discontinued 1 CAP PO DAILY December 02, 2021 11:00pm April 14, 2022 12:31pm Start: 12-03-2021 End: 04-14-2022 take 1 capsule by mouth once daily Multivitamin With Minerals Discontinued 1 CAP PO DAILY December 03, 2021 12:00am April 14, 2022 1:31pm Start: 12-03-2021 take 1 capsule by mo [facility] once daily Multivitamin With Minerals Active 1 CAP PO DAILY December 02, 2021 11:00pm Start: 12-03-2021 take 1 capsule by mo ut once daily Multivitamin With Minerals Active 1 CAP PO DAILY December 03, 2021 12:00am Multivitamin With Minerals capsule (2 sources) Start: 12-03-2021 End: 04-14-2022 Multivitamin With Minerals capsule Discontinued 1 NMA PO DAILY December 03, 2021 12:00am April 14, 2022 1:31pm ondansetron 4 mg disintegrating oral tablet (11 sources) Serotonin-3 Receptor Antagonist Start: 05-17-2021 End: 12-03-2021 take 1 tablet by mouth every eight hours as needed for nausea Ondansetron 4 MG tablet Discontinued 4 mg PO EVERY 8 HOURS NEEDED as needed for Nausea May 17, 2021 12:00am December 03, 2021 2:11pm tamoxifen 20 mg oral tablet (4 sources) Estrogen Agonist/Antagonis t Start: 06-01-2022 End: 08-11-2022 take 1 tablet by mouth once daily Tamoxifen 20 mg tablet Discontinued 20 mg PO DAILY June 01, 2022 12:00am August 11, 2022 2:13pm zinc gluconate 50 mg oral tablet (3 sources) Start: 12-23-2022 End: 10-06-2023 take 1 tablet by mouth once daily Zinc Gluconate 50 mg tablet Discontinued 50 mg PO DAILY December 23, 2022 12:00am October 06, 2023 2:07pm Problems Active Problems Problem Classification Problem Date Documented Da te Episodic/Chronic Abdominal pain (11 sources) Left flank pain; Translations: [Unspecified abdominal pain] 05-25-2021 Episodic Administrative/social admission (4 sources) Patient encounter status; Translations: [Counseling, unspecified] 06-01-2022 Episodic Anxiety disorders (18 sources) Mixed anxiety and depressive disorder; Translations: [Anxiety disorder, unspecified] Chronic Calculus of urinary tract (11 sources) Kidney stone; Translations: [Calculus of kidney] 05-25-2021 Episodic Cancer of breast (20 sources) Malignant neoplasm of unspecified site of unspecified female breast; Translations: [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 Pathologic stage pT2 pN1a. Prognostic stage IB. Post menopausal. Oncotype DX recurrence score 22, there is no clear benefits from chemotherapy. CT c/a/p 03/10/2022 showed no evidence of metastatic disease.Bone scan 03/08/2022 showed no evidence of metastatic disease.Completed adjuvant radiation therapy. Declined adjuvant hormone therapy.On observation. Labs reviewed, within normal limits.No evidence of disease clinically. Essential hypertension (19 sources) Hypertensive disorder; Translations: [Essential (primary) hypertension] Chronic Genitourinary symptoms and ill-defined conditions (11 sources) Blood in urine; Translations: [Hematuria, unspecified] 05-25-2021 Episodic Lymphadenitis (4 sources) Lymphadenopathy; Translations: [Generalized enlarged lymph nodes] Episodic Malaise and fatigue (4 sources) Fatigue; Translations: [Other fatigue] 08-11-2022 Episodic Nonmalignant breast conditions (7 sources) Mastodynia; Translations: [Painful lumpy right breast] Episodic Other bone disease and musculoskeletal deformities (4 sources) Osteopenia; Translations: [Other specified disorders of bone density and structure, unspecified site] 04-11-2023 Episodic Other lower respiratory disease (4 sources) Cough; Translations: [Cough] 12-23-2022 Episodic Other lower respiratory disease (4 sources) Nodule of lung; Translations: [Solitary pulmonary nodule] 08-16-2024 Episodic Comment on above: CT on 01/10/2023 yojana wed R middle lobe nodule.PET/CT 02/08/2023 reviewed, showed no activity suggestive of metastatic diseasCT chest 08/11/2023 reviewed, decreasing R middle lobe nodule.Comes for follow up.CT08/09/2024 reviewed, stable nodule in RML.Discussed findings with Pt, no need to repeat CT. Other screening for suspected conditions (not mental disorders or infectious disease) (17 sources) Abnormal finding on evaluation procedure; Translations: [Other specified abnormal findings of blood chemistry] Onset: 08-16-2024 Episodic Residual codes; unclassified (4 sources) Other specified postprocedural states; Translations: [Other postprocedural status] 09-06-2022 Episodic Comment on above: 02/05/22 Secondary malignancies (1 source) Secondary and unspecified malignant neoplasm of axilla and upper limb lymph nodes; Translations: [Secondary and unspecified malignant neoplasm of axilla and upper limb lymph nodes] Onset: 08-16-2024 Chronic Past or Other Problems Problem Classification Problem Date Documented Da te Episodic/Chronic Cancer of breast (5 sources) History of malignant neoplasm of breast; Translations: [Personal history of malignant neoplasm of breast] Onset: 08-16-2024 12-23-2022 Episodic Other lower respiratory disease (1 source) Solitary pulmonary nodule; Translations: [Solitary pulmonary nodule] Onset: 08-16-2024 Episodic Results Test Name Value Interpretation Reference Range Facility CA 15-3on 08-18-2024 CA 15-3 16.6 U/mL Normal 0.0-25.0 [facility] Comment on above: Order Comment: ADD O N FROM TODAY, THANKS Result Comment: [facility] [employer] Electrochemiluminescence Immunoassay (ECLIA) Values obtained with different assay methods or kits cannot be used interchangeably. Results cannot be interpreted as absolute evidence of the presence or absence of malignant disease. Performed at: [address] [id number] Area Field Person: Osmel Bermudez PhD, Phone: [phone] Performed By: #### L 3100.2300, L3100.5030, L3100.5000, L3100.5040 #### [facility] [address] [place], [address] CA 27.29on 08-18-2024 CA 27.29 23.4 U/mL Normal 0.0-38.6 [facility] Comment on above: Order Comment: ADD O N FROM TODAY, THANKS Result Comment: [employer] Immunochemiluminometric Methodology (ICMA) Values obtained with different assay methods or kits cannot be used interchangeably. Results cannot be interpreted as absolute evidence of the presence or absence of malignant disease. Performed By: #### L 3100.2300, L3100.5030, L3100.5000, L3100.5040 #### [facility] [address] [place], [place], [id number] (374) Cancer Antigen 125on 025 CA 125 10.2 U/mL Normal 0.0-38.1 [facility] Comment on above: Order Comment: ADD O N FROM TODAY, THANKS Result Comment: [facility] [employer] Electrochemiluminescence Immunoassay (ECLIA) Values obtained with different assay methods or kits cannot be used interchangeably. Results cannot be interpreted as absolute evidence of the presence or absence of malignant disease. Performed By: #### L 3100.2300, L3100.5030, L3100.5000, L3100.5040 #### [facility] [address] [place], [place], [id number] Carcinoembryonic Antigenon 0 08-18-2024 CEA 0.9 ng/mL Normal 0.0-4.7 [facility] Comment on above: Order Comment: ADD O N FROM TODAY, THANKS Result Comment: Nons mokers <3.9 Smokers <5.6 [facility] Electrochemiluminescence Immunoassay (ECLIA) Values obtained with different assay methods or kits cannot be used interchangeably. Results cannot be interpreted as absolute evidence of the presence or absence of malignant disease. Performed By: #### L 3100.2300, L3100.5030, L3100.5000, L3100.5040 #### [facility] [address] [place], [address] Absolute lymphocyte countOrd ered By: Edouard Tiwaribethany on 08-16-2024 Lymphocytes Auto (Unsp spec) [#/Vol] 1.52 10*3/uL 0.83-4.51 [facility] Absolute neutrophil countOrd ered By: Edouard [facility] on 08-16-2024 Neutrophils (Bld) [#/Vol] 4.2 10*3/uL 2.0-7.7 [facility] Anion gap in Serum or Plasma Ordered By: Edouard Tiwaribethany on 08-16-2024 Anion gap [Moles/Vol] 9 mmol/L 5-15 [facility] Automated lymphocyte count a s percentage of total leukocytesOrdered By: Edouard Tiwaribethany on 08-16-2024 Lymphocytes/100 WBC Auto (Unsp spec) 23.9 % 19-41 [facility] BUN/creatinine ratioOrdered By: Edouard Tiwari on 08-16-2024 Urea nitrogen/Creatinine [Mass ratio] 21.7 mg/mg High 10-20 [facility] Basophil percentageOrdered B y: Edouard Tiwaribethany on 08-16-2024 Basophils/100 WBC (Bld) 0.8 % 0-1 [facility] Bilirubin, totalOrdered By: Edouard Tiwaribethany on 08-16-2024 Bilirubin [Mass/Vol] 0.42 mg/dL 0.00-1.30 [facility] CBC W/Diff, Automatedon 07-23 Absolute Lymph 1.52 X10 3/uL Normal 0.83-4.51 [facility] Comment on above: Performed By: #### L 100.0100, L504.2610, L500.4050 #### [facility] [address] [place], [address] Absolute Neut 4.2 X10 3/uL Normal 2.0-7.7 [facility] Comment on above: Performed By: #### L 100.0100, L504.2610, L500.4050 #### [facility] [address] [place], [address] Basophils/100 WBC (Bld) 0.8 % Normal 0-1 [facility] Comment on above: Performed By: #### L 100.0100, L504.2610, L500.4050 #### [facility] [address] [place], [address] Eosinophils/100 WBC (Bld) 1.3 % Normal 0-5 [facility] Comment on above: Performed By: #### L 100.0100, L504.2610, L500.4050 #### [facility] [address] [place], [address] Erythrocyte distribution width (RBC) [Ratio] 13.2 % Normal 11.6-14.6 [facility] Comment on above: Performed By: #### L 100.0100, L504.2610, L500.4050 #### [facility] [address] [place], [address] Hematocrit (Bld) [Volume fraction] 41.0 % Normal 37-47 [facility] Comment on above: Performed By: #### L 100.0100, L504.2610, L500.4050 #### [facility] [address] [place], [address] Hemoglobin (Bld) [Mass/Vol] 13.5 g/dL Normal 12.0-15.0 [facility] Comment on above: Performed By: #### L 100.0100, L504.2610, L500.4050 #### [facility] [address] [place], [address] IG% 0.300 Normal 0.0-0.9 [facility] Comment on above: Result Comment: IG% - Immature Granulocytes (promyelocytes, myelocytes and metamyelocytes) > 1% indicates that a LEFT SHIFT is Present. Performed By: #### L 100.0100, L504.2610, L500.4050 #### [facility] [address] [place], [address] Lymphocytes/100 WBC (Bld) 23.9 % Normal 19-41 [facility] Comment on above: Performed By: #### L 100.0100, L504.2610, L500.4050 #### [facility] [address] [place], [address] MCH (RBC) [Entitic mass] 29.4 pg Normal 27.0-32.0 [facility] Comment on above: Performed By: #### L 100.0100, L504.2610, L500.4050 #### [facility] [address] [place], [address] MCHC (RBC) [Mass/Vol] 32.9 g/dL Normal 32-36 [facility] Comment on above: Performed By: #### L 100.0100, L504.2610, L500.4050 #### [facility] [address] [place], [address] MCV (RBC) [Entitic vol] 89.3 fL Normal 81-99 [facility] Comment on above: Performed By: #### L 100.0100, L504.2610, L500.4050 #### [facility] [address] [place], [address] Monocytes/100 WBC (Bld) 7.2 % Normal 0-10 [facility] Comment on above: Performed By: #### L 100.0100, L504.2610, L500.4050 #### [facility] [address] [place], [address] Neutrophils/100 WBC (Bld) 66.5 % Normal 47-70 [facility] Comment on above: Performed By: #### L 100.0100, L504.2610, L500.4050 #### [facility] [address] [place], [address] Nucleated RBC (Bld) [#/Vol] 0 10*3/uL Normal 0-5 [facility] Comment on above: Performed By: #### L 100.0100, L504.2610, L500.4050 #### [facility] [address] [place], [address] Platelet mean volume (Bld) [Entitic vol] 9.6 fL Normal 6.2-12.0 [facility] Comment on above: Performed By: #### L 100.0100, L504.2610, L500.4050 #### [facility] [address] [place], [address] Platelets (Bld) [#/Vol] 197 10*3/uL Normal 150-450 [facility] Comment on above: Performed By: #### L 100.0100, L504.2610, L500.4050 #### [facility] [address] [place], [address] RBC (Bld) [#/Vol] 4.59 10*6/uL Normal 4.2-5.4 [facility] Comment on above: Performed By: #### L 100.0100, L504.2610, L500.4050 #### [facility] [address] [place], [address] RDW SD 43.1 fl Normal 35.1-43.9 [facility] Comment on above: Performed By: #### L 100.0100, L504.2610, L500.4050 #### [facility] [address] [place], [address] WBC (Bld) [#/Vol] 6.4 10*3/uL Normal 4.4-11.0 [facility] Comment on above: Performed By: #### L 100.0100, L504.2610, L500.4050 #### [facility] [address] [place], [address] Carbon dioxide, total [Moles /volume] in Central venous bloodOrdered By: Edouard Ann on 08-16-2024 CO2 [Moles/Vol] 25.6 mmol/L 21.0-32.0 [facility] Chloride assayOrdered By: Brooke Ann on 08-16-2024 Chloride [Moles/Vol] 108 mmol/L 98-108 [facility] Comprehensive Metabolic Prof ilon 08-16-2024 Albumin [Mass/Vol] 4.1 g/dL Normal 3.4-4.8 [facility] Comment on above: Performed By: #### L 100.0100, L504.2610, L500.4050 #### [facility] [address] [place], [address] Albumin/Globulin [Mass ratio] 1.5 {ratio} Normal 0.9-2.4 [facility] Comment on above: Performed By: #### L 100.0100, L504.2610, L500.4050 #### [facility] [address] [place], [address] ALK PHOS 58 U/L Normal 35-104 [facility] Comment on above: Performed By: #### L 100.0100, L504.2610, L500.4050 #### [facility] [address] [place], [address] ALT [Catalytic activity/Vol] 24 U/L Normal <=34 [facility] Comment on above: Performed By: #### L 100.0100, L504.2610, L500.4050 #### [facility] [address] [place], [address] AST [Catalytic activity/Vol] 30 U/L Normal <=31 [facility] Comment on above: Performed By: #### L 100.0100, L504.2610, L500.4050 #### [facility] [address] [place], [address] Bilirubin [Mass/Vol] 0.42 mg/dL Normal 0.00-1.30 [facility] Comment on above: Performed By: #### L 100.0100, L504.2610, L500.4050 #### [facility] [address] [place], [address] BUN/CRE 21.7 RATIO High 10-20 [facility] Comment on above: Performed By: #### L 100.0100, L504.2610, L500.4050 #### [facility] [address] [place], [address] Calcium [Mass/Vol] 9.5 mg/dL Normal 7.6-11.0 [facility] Comment on above: Performed By: #### L 100.0100, L504.2610, L500.4050 #### [facility] [address] [place], [address] Chloride [Moles/Vol] 108 mmol/L Normal 98-108 [facility] Comment on above: Performed By: #### L 100.0100, L504.2610, L500.4050 #### [facility] [address] [place], [address] CO2 [Moles/Vol] 25.6 mmol/L Normal 21.0-32.0 [facility] Comment on above: Performed By: #### L 100.0100, L504.2610, L500.4050 #### [facility] [address] [place], [address] Creatinine [Mass/Vol] 0.77 mg/dL Normal 0.70-1.20 [facility] Comment on above: Performed By: #### L 100.0100, L504.2610, L500.4050 #### [facility] [address] [place], [address] ECRCL 81.49 ml/min Normal 50-250 [facility] Comment on above: Performed By: #### L 100.0100, L504.2610, L500.4050 #### [facility] [address] [place], [address] GAP 9 Normal 5-15 [facility] Comment on above: Performed By: #### L 100.0100, L504.2610, L500.4050 #### [facility] [address] [place], [address] GFR/1.73 sq M.predicted among non-blacks MDRD (S/P/Bld) [Vol rate/Area] 83 mL/min/{1.73_m2} Normal >60 [facility] Comment on above: Result Comment: mL/m in/1.73m2 CKD-EPI Creatinine Equation (2020) Performed By: #### L 100.0100, L504.2610, L500.4050 #### [facility] [address] [place], [address] Globulin (S) [Mass/Vol] 2.7 g/dL Normal 2.2-4.2 [facility] Comment on above: Performed By: #### L 100.0100, L504.2610, L500.4050 #### [facility] [address] [place], [address] Glucose [Mass/Vol] 99 mg/dL Normal 70-99 [facility] Comment on above: Performed By: #### L 100.0100, L504.2610, L500.4050 #### [facility] [address] [place], [address] Potassium [Moles/Vol] 4.2 mmol/L Normal 3.3-5.1 [facility] Comment on above: Performed By: #### L 100.0100, L504.2610, L500.4050 #### [facility] [address] [place], [address] Sodium [Moles/Vol] 143 mmol/L Normal 133-145 [facility] Comment on above: Performed By: #### L 100.0100, L504.2610, L500.4050 #### [facility] [address] [place], [address] T PROT 6.7 g/dL Normal 5.9-8.4 [facility] Comment on above: Performed By: #### L 100.0100, L504.2610, L500.4050 #### [facility] [address] [place], [address] Urea nitrogen [Mass/Vol] 17 mg/dL Normal 4-19 [facility] Comment on above: Performed By: #### L 100.0100, L504.2610, L500.4050 #### [facility] [address] [place], [address] Eosinophil percentageOrdered By: Edouard Ann on 08-16-2024 Eosinophils/100 WBC (Bld) 1.3 % 0-5 [facility] Erythrocyte distribution wid th ratioOrdered By: Edouard Ann on 08-16-2024 Erythrocyte distribution width (RBC) [Ratio] 13.2 % 11.6-14.6 [facility] Erythrocyte distribution wid th standard deviationOrdered By: Edouard Ann on 08-16-2024 Erythrocyte distribution width (RBC) [Ratio] 43.1 fl 35.1-43.9 [facility] [facility] Glomerular filtration rate ( GFR) estimation/1.73 sq m using serum, plasma, or whole bOrdered By: Edouard Ann on 08-16-2024 GFR/1.73 sq M.predicted among non-blacks MDRD (S/P/Bld) [Vol rate/Area] 83 mL/min/{1.73_m2} >60 [facility] Comment on above: mL/min/1.73m2 CKD-EP I Creatinine Equation (2020) Hematocrit Auto (Bld) [Volum e fraction]Ordered By: Edouard Ann on 08-16-2024 Hematocrit (Bld) [Volume fraction] 41.0 % 37-47 [facility] Hemoglobin measurementOrdere d By: Edouard Ann on 08-16-2024 Hemoglobin (Bld) [Mass/Vol] 13.5 g/dL 12.0-15.0 [facility] Immature granulocytes/100 WB C Auto (Bld)Ordered By: Edouard Ann on 08-16-2024 Immature granulocytes/100 WBC (Bld) 0.300 % 0.0-0.9 [facility] Comment on above: IG% - Immature Granu locytes (promyelocytes, myelocytes and metamyelocytes) > 1% indicates that a LEFT SHIFT is Present. LDHon 08-16-2024 LDH 282 U/L [facility] 84-246 [facility] Comment on above: Order Comment: 1 Performed By: #### L 100.0100, L504.2610, L500.4050 #### [facility] [address] [place] [address], [address] Laboratory - Chemistry and C hemistry - challengeOrdered By: Edouard Ann on 08-16-2024 AST [Catalytic activity/Vol] 30 U/L <32 [facility] Lactate dehydrogenase (LDH) measurementOrdered By: Edouard Ann on 08-16-2024 LDH [Catalytic activity/Vol] 282 U/L [facility] [address] [place] [address] MCV (mean corpuscular volume ) determinationOrdered By: Edouard Ann on 08-16-2024 MCV (RBC) [Entitic vol] 89.3 fL 81-99 [facility] Mean corpuscular hemoglobin (MCH) determinationOrdered By: Edouard Ann on 08-16-2024 MCH (RBC) [Entitic mass] 29.4 pg 27.0-32.0 [facility] Mean corpuscular hemoglobin concentration (MCHC) determinationOrdered By: Edouard Ann on 08-16-2024 MCHC (RBC) [Mass/Vol] 32.9 g/dL 32-36 [facility] Mean platelet volume determi nationOrdered By: Edouard Ann on 08-16-2024 Platelet mean volume (Bld) [Entitic vol] 9.6 fL 6.2-12.0 [facility] Monocyte percentageOrdered B y: Edouard Ann on 08-16-2024 Monocytes/100 WBC (Bld) 7.2 % 0-10 [facility] Neutrophil percentageOrdered By: Edouard Ann on 08-16-2024 Neutrophils/100 WBC (Bld) 66.5 % 47-70 [facility] Nucleated red blood cell per centageOrdered By: Edouard Seth on 08-16-2024 Nucleated RBC/100 WBC (Bld) [Ratio] 0 % 0-5 [facility] Oncology Visit Reporton 07-23 Oncology Visit Report [facility] [address] [place] [address] OFFICE VISIT Date of Service: 08/16/24 1408 MR#: [id number] Acct: [id number] Name: LEYLA COLÓN Rep #: [id number] : 1955 From: Edouard Ann MD Age/Sex: 69/F Location: [facility] Status: Signed HPI Subjective Date of Service 08/16/24 Chief Complaint Breast cancer follow up History of Present Illness 69-year-old woman presented with right breast mass and retraction of right nipple. Had a mammogram done on which showed 2.4 cm irregular nodule in the central area of the right breast on 12/18/2021. Ultrasound of the right breast showed 2.6 cm heterogeneous mass at 2 o'clock position. 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 MRI of the right breasts on 01/12/2022 showed 3.1 cm mass at approximately 3 o'clock position with right axillary node, left breast showed no masses. She underwent right lumpectomy and sentinel node dissection on 02/05/2022. Pathology demonstrated grade 2 invasive ductal carcinoma with mucinous differentiation measuring 3 x 2.5 x 2 cm.??? There was also associated grade 2 DCIS on 05/02 blocks comprising less than 10% of the total tumor volume.??? Lymph vascular invasion not identified.??? Margins negative with the distance to the invasive disease being 1 mm in the posterior, 3 mm anterior, and 4 mm inferior and distance to the DCIS being 3 mm medially, 1/2 LNs contained metastatic disease which measured 1.5 x 1 cm. pT2 pN1a. On 02/17/22, underwent revision of superior margin. CT C/A/P obtained 03/10/22 and NM bone scan done 03/08/22 showed no evidence of distant metastatic disease. Oncotype DX . Patient declined chemotherapy. Completed adjuvant radiation 04/12/22-05/10/22. May 2022 patient elected tamoxifen over AI. An rx for tamoxifen was sent to her preferred pharmacy however patient ultimately chose not to proceed with adjuvant endocrine therapy. Had cough so CT chest on 01/10/2023 showed R middle lobe nodule. Had PET/CT on 02/08/2023 which was negative. She is on observation. Had CT chest done and comes for follow up. 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 Invasive ductal carcinoma of right breast Abnormal [id number]-fy-[id number] ratio Anxiety and depression Hypertension Kidney disease Surgical History History of lumpectomy of right breast History of tonsillectomy Hx of tubal ligation Family History Other Asthma Depression Social History Smoking Status: Never smoker alcohol intake: never substance use type: does not use what type of physical activity do you participate in: none 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, 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 Intake Vital Signs 10/06/23 14:07 08/16/24 14:08 Height 5 ft 7 in 5 ft 7 in Weight: 107.671 kg BMI 37.1 BP 136/84 H Blood Pressure Location Lt brachial Position Sitting Respiration 16 Pulse 90 Pulse Source Monitor Temp 98.2 F Temperature Source Temporal Artery Pulse Oximetry (%) 98 Oxygen Delivery Method room air Intake Accompanied by: Self Is patient in pain?: No Allergies No Known Allergies Allergy (Verified 08/16/24 14:14) Medications ???Medication ???Instructions ???Recorded ???Confirmed ???Type magnesium oxide 500 mg capsule 500 mg PO DAILY 12/23/22 08/16/24 History lactobacillus combination no.4 3 3,000 mmu cells PO DAILY PRN 08/2208/16/24 History billion cell capsule (Probiotic) Have you fallen in the past year?: No Central Venous Access Central Venous Access: No 12/22/2023 Mammogram reviewed. BI/SCRN MAMM (CAD)W/MARIELLE BILAT IMPRESSION: Stable bilateral screening mammogram. Yearly follow-up mammogram recommended. (A) Exam Physical Exam Const alert and oriented x3 HEENT normocephalic Mouth: oral and palatal mucosa normal Eyes conjunctivae normal and no scleral icterus Sclera: sclera normal Neck no lymphadenopathy and supple Chest Chest Narrative: Breast exam deferred Resp normal respiratory effort and clear to auscultation bilaterally Effort and Inspection: able to speak in complete sentences Auscultation: Negative for rhonchi or wheezes Cardio regular rate, regular rhythm, S1 normal heart sound and S2 normal heart sound GI normal to inspection, nondistended (more content not included)... Normal [facility] Platelet countOrdered By: Brooke Ann on 08-16-2024 Platelets (Bld) [#/Vol] 197 10*3/uL 150-450 [facility] Potassium measurement (mass/ volume)Ordered By: Edouard Ann on 08-16-2024 Potassium (Unsp spec) [Mass/Vol] 4.2 mmol/L 3.3-5.1 [facility] RBC Auto (Bld) [#/Vol]Ordere d By: Edouard Ann on 08-16-2024 RBC (Bld) [#/Vol] 4.59 10*6/uL 4.2-5.4 [facility] Serum creatinine measurement (mass/volume)Ordered By: Edouard Ann on 08-16-2024 Creatinine [Mass/Vol] 0.77 mg/dL 0.70-1.20 [facility] Serum globulin measurementOr dered By: Edouard Ann on 08-16-2024 Globulin (S) [Mass/Vol] 2.7 g/dL 2.2-4.2 [facility] Serum glucose measurement (m ass/volume)Ordered By: Edouard Ann on 08-16-2024 Glucose [Mass/Vol] 99 mg/dL 70-99 [facility] Serum or plasma alanine william otransferase (ALT) measurementOrdered By: Edouard Ann on 08-16-2024 ALT [Catalytic activity/Vol] 24 U/L <35 [facility] Serum or plasma albumin aminta urement (mass/volume)Ordered By: Edouard Ann on 08-16-2024 Albumin [Mass/Vol] 4.1 g/dL 3.4-4.8 [facility] Serum or plasma albumin/glob ulin mass ratioOrdered By: Edouard Ann on 08-16-2024 Albumin/Globulin [Mass ratio] 1.5 {ratio} 0.9-2.4 [facility] Serum or plasma alkaline herrera sphatase measurementOrdered By: Edouard nAn on 08-16-2024 ALP [Catalytic activity/Vol] 58 U/L 35-104 [facility] Serum or plasma calcium aminta urement (mass/volume)Ordered By: Edouard Ann on 08-16-2024 Calcium [Mass/Vol] 9.5 mg/dL 7.6-11.0 [facility] Serum or plasma urea nitroge n measurement (mass/volume)Ordered By: Edouard Ann on 08-16-2024 Urea nitrogen [Mass/Vol] 17 mg/dL 4-19 [facility] Sodium levelOrdered By: Marlon Ann on 08-16-2024 Sodium [Moles/Vol] 143 mmol/L 133-145 [facility] Total proteinOrdered By: Guillermo Ann on 08-16-2024 Protein [Mass/Vol] 6.7 g/dL 5.9-8.4 [facility] White blood cell (WBC) count Ordered By: Edouard Ann on 08-16-2024 WBC (Bld) [#/Vol] 6.4 10*3/uL 4.4-11.0 [facility] Chest WITH Contraston 2024 Chest WITH Contrast [facility] [address] [place] [address] Chest WITH Contrast MR#: [id number] Acct: [id number] Name: LEYLA COLÓN Rep #: [id number] : 1955 F 69 From: Vick nails MD PCP: Dr. Domenic Hector MD Status: REG CLI Study: Chest WITH Contrast Date of Exam: 08/09/24 Exam# [id number] Ordering Dr: Edouard Ann MD PROCEDURE: CHEST WITH CONTRAST 08/09/2024 REASON FOR EXAM: R LUNG NODULE, HX OF BREAST CA History of prior right lumpectomy. TECHNIQUE: CHEST WITH CONTRAST Coronal and Sagittal reconstruction series were provided. CONTRAST: Isovue 370 VOLUME: 100 mL One or more dose reduction techniques were used (e.g., Automated exposure control, adjustment of the mA and/or kV according to patient size, use of iterative reconstruction technique). RADIATION DOSE SUMMARY: CTDlvol: 8 mGy DLP: 465.82 mGycm COMPARISON: Prior study dated August 11, 2023. FINDINGS: Hardware: Surgical clips are seen in the right axilla. Stable postsurgical changes at the deep aspect of the right breast. Lymph nodes: No suspicious lymph nodes are seen. Heart and Vasculature: Heart is nonenlarged. No significant coronary artery calcification is seen. Lungs and Airways: Stable linear scarring in the anterior aspect of the right middle lobe most likely secondary to prior radiation therapy if patient received radiation. Stable 6 mm nodule at that site. Stable scarring at the lung bases. Pleura: No evidence of pleural effusion. Upper Abdomen: Unremarkable Bones: Degenerative changes of the thoracic spine. CT/Chest WITH Contrast IMPRESSION: Coronary artery calcification (CAC) is is absent Stable examination. Reading Location: [place] [address] CC: Dr. Domenic Hector MD; Dr. 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 Results cannot be interpreted asabsolute evidence of the presence or absence of malignantdisease.Performed at: [address] [id number] Director: Osmel Bermudez PhD, Phone: [phone] [place] 27.29 22.1 U/mL 0.0-38.6 [facility] Comment on above: [employer] Immu nochemiluminometric Methodology (ICMA)Values obtained with different assay methods or kits cannotbe used interchangeably. Results cannot be interpreted asabsolute evidence of the presence or absence of malignantdisease. Basophil percentageOrdered B y: Renae Kilgore on 01-10-2023 Basophil percentage < 0.9 mg/dL 0.55-1.02 [facility] No Panel InformationOrdered By: Renae Kilgore on 01-10-2023 Bedside Estimated GFR (eGFR) > 60.0000 mL/min >60 [facility] No Panel InformationOrdered By: Renae Kilgore on 08-11-2022 Estimated GFR (MDRD) Amer 100 mL/min >60 [facility] Comment on above: GFR Calc Thyroid Stimulating Hormone (TSH) 2.38 uIU/mL 0.358-3.74 [facility] Absolute lymphocyte countOrd ered By: Dr. Ann on 03-18-2022 Lymphocytes Auto (Unsp spec) [#/Vol] 2.03 10*3/uL 0.83-4.51 [facility] Basophil percentageOrdered B y: Dr. Ann on 03-18-2022 Basophils/100 WBC (Bld) 0.6 % 0-1 [facility] Bilirubin [Mass/Vol] 0.30 mg/dL 0.20-1.00 [facility] Comment on above: For patients on eltr ombopag therapy, use of Dimension [place] TBIL is not recommended. Chloride [Moles/Vol] 104 mmol/L 98-107 [facility] Eosinophils/100 WBC (Bld) 1.6 % 0-5 [facility] Glucose [Mass/Vol] 100 mg/dL 74-106 [facility] Comment on above: Fasting Glucose resu lt from 100 to 125 mg/dL suggests IMPAIRED HOMEOSTASIS per A.D.A. criteria. LDH [Catalytic activity/Vol] 225 U/L 84-246 [facility] Neutrophils (Bld) [#/Vol] 4.4 10*3/uL 2.0-7.7 [facility] Neutrophils/100 WBC (Bld) 61.9 % 47-70 [facility] Potassium [Moles/Vol] 4.3 mmol/L 3.5-5.1 [facility] Protein [Mass/Vol] 7.5 g/dL 6.4-8.2 [facility] Sodium [Moles/Vol] 141 mmol/L 136-145 [facility] WBC (Bld) [#/Vol] 7.1 10*3/uL 4.4-11.0 [facility] Blood erythrocytes count (nu mber/volume)Ordered By: Dr. Ann on 03-18-2022 RBC (Bld) [#/Vol] 4.74 10*6/uL 4.2-5.4 [facility] Blood hemoglobin measurement (mass/volume)Ordered By: Dr. Ann on 03-18-2022 Hemoglobin (Bld) [Mass/Vol] 13.6 g/dL 12.0-15.0 [facility] Blood lymphocytes/100 leukoc ytesOrdered By: Dr. Ann on 03-18-2022 Lymphocytes/100 WBC (Bld) 28.8 % 19-41 [facility] Blood monocytes/100 leukocyt esOrdered By: Dr. Ann on 03-18-2022 Monocytes/100 WBC (Bld) 6.8 % 0-10 [facility] Blood platelet mean volumeOr dered By: Dr. Ann on 03-18-2022 Platelet mean volume (Bld) [Entitic vol] 9.5 fL 6.2-12.0 [facility] Determination of erythrocyte mean corpuscular volume (MCV)Ordered By: Dr. Ann on 03-18-2022 MCV (RBC) [Entitic vol] 90.9 fL 81-99 [facility] Hematocrit Auto (Bld) [Volum e fraction]Ordered By: Dr. Ann on 03-18-2022 Hematocrit (Bld) [Volume fraction] 43.1 % 37-47 [facility] Laboratory - Chemistry and C hemistry - challengeOrdered By: Dr. Ann on 03-18-2022 ALP [Catalytic activity/Vol] 64 U/L 45-117 [facility] ALT [Catalytic activity/Vol] 44 U/L 13-56 [facility] CO2 [Moles/Vol] 30.0 mmol/L 21.0-32.0 [facility] Globulin (S) [Mass/Vol] 3.8 g/dL 2.2-4.2 [facility] Urea nitrogen/Creatinine [Mass ratio] 29.2 mg/mg 10-20 [facility] - Hematology and Cell countsOrdered By: Dr. Ann on 03-18-2022 Erythrocyte distribution width (RBC) [Entitic vol] 45.1 fL 35.1-43.9 [facility] Erythrocyte distribution width (RBC) [Ratio] 13.5 % 11.6-14.6 [facility] Immature granulocytes/100 WBC (Bld) 0.300 % 0.0-0.9 [facility] Comment on above: IG% - Immature Granu locytes (promyelocytes, myelocytes and metamyelocytes) > 1% indicates that a LEFT SHIFT is Present. MCH (RBC) [Entitic mass] 28.7 pg 27.0-32.0 [facility] Nucleated RBC/100 WBC (Bld) [Ratio] 0 % 0-5 [facility] MCHC Auto (RBC) [Mass/Vol]Or dered By: Dr. Ann on 03-18-2022 MCHC (RBC) [Mass/Vol] 31.6 g/dL 32-36 [facility] No Panel InformationOrdered By: Dr. Ann on 03-18-2022 Estimated GFR (MDRD) Amer 104 mL/min >60 [facility] Comment on above: GFR Calc Estimated GFR (MDRD) Non-Af Amer 86 mL/min >60 [facility] Comment on above: Non- GFR Calc Platelets bldOrdered By: Dr. Ann on 03-18-2022 Platelets (Bld) [#/Vol] 247 10*3/uL 150-450 [facility] Serum or plasma albumin aminta urement (mass/volume)Ordered By: Dr. Ann on 03-18-2022 Albumin [Mass/Vol] 3.7 g/dL 3.2-5.0 [facility] Serum or plasma albumin/glob ulin mass ratioOrdered By: Dr. Ann on 03-18-2022 Albumin/Globulin [Mass ratio] 1.0 {ratio} 0.9-2.4 [facility] Serum or plasma calcium aminta urement (mass/volume)Ordered By: Dr. Ann on 03-18-2022 Calcium [Mass/Vol] 9.4 mg/dL 8.5-10.1 [facility] Serum or plasma creatinine m easurement (mass/volume)Ordered By: Dr. Ann on 03-18-2022 Creatinine [Mass/Vol] 0.72 mg/dL 0.55-1.02 [facility] Comment on above: The validity of the calculated GFR & GFRAA in patients over 70 years has not been determined. Clinical correlation is essential. Serum or plasma urea nitroge n measurement (mass/volume)Ordered By: Dr. Ann on 03-18-2022 Urea nitrogen [Mass/Vol] 21 mg/dL -18 [facility] Thin prep Papanicolaou smear with manual screeningOrdered By: Dr. Ann on 03-18-2022 Thin prep Papanicolaou smear with manual screening 26 U/L 15-37 [facility] Thin prep Papanicolaou smear with manual screening 7 5-15 [facility] Basophil percentageOrdered B y: Dr. Ann on 03-10-2022 Basophil percentage < 0.9 mg/dL 0.55-1.02 [facility] No Panel InformationOrdered By: Dr. Ann on 03-10-2022 Bedside Estimated GFR (eGFR) > 60.0000 mL/min >60 [facility] Stool gastrointestinal hemog lobin detection by immunologic methodOrdered By: Dr. Hector on 12-18-2021 Lower GI hemoglobin IA Ql (Stl) [facility] Absolute lymphocyte countOrd ered By: Dr. Hector on 12-03-2021 Lymphocytes Auto (Unsp spec) [#/Vol] 2.02 10*3/uL 0.83-4.51 [facility] Basophil percentageOrdered B y: Dr. Hector on 12-03-2021 Basophils/100 WBC (Bld) 0.8 % 0-1 [facility] Bilirubin [Mass/Vol] 0.30 mg/dL 0.20-1.00 [facility] Comment on above: For patients on eltr ombopag therapy, use of Dimension [place] TBIL is not recommended. Chloride [Moles/Vol] 106 mmol/L 98-107 [facility] Cholesterol [Mass/Vol] 236 mg/dL <200 [facility] Comment on above: <200 mg/dL Desirable 200-240 mg/dL Borderline >240 mg/dL High Risk Eosinophils/100 WBC (Bld) 2.2 % 0-5 [facility] Glucose [Mass/Vol] 88 mg/dL 74-106 [facility] Neutrophils (Bld) [#/Vol] 5.1 10*3/uL 2.0-7.7 [facility] Neutrophils/100 WBC (Bld) 64.1 % 47-70 [facility] Potassium [Moles/Vol] 4.2 mmol/L 3.5-5.1 [facility] Protein [Mass/Vol] 7.7 g/dL 6.4-8.2 [facility] Sodium [Moles/Vol] 140 mmol/L 136-145 [facility] Triglyceride [Mass/Vol] 118 mg/dL <199 [facility] Comment on above: The drugs N-Acetylcy steine and Metamizole may falsely depress this assay.Serum Triglycerides Reference Interval Normal <150 mg/dL Borderline high 150 - 199 mg/dL High 200 - 499 mg/dL Very High > or = 500 mg/dL WBC (Bld) [#/Vol] 7.9 10*3/uL 4.4-11.0 [facility] Blood erythrocytes count (nu mber/volume)Ordered By: Dr. Hector on 12-03-2021 RBC (Bld) [#/Vol] 4.76 10*6/uL 4.2-5.4 [facility] Blood hemoglobin measurement (mass/volume)Ordered By: Dr. Hector on 12-03-2021 Hemoglobin (Bld) [Mass/Vol] 14.1 g/dL 12.0-15.0 [facility] Blood lymphocytes/100 leukoc ytesOrdered By: Dr. Hector on 12-03-2021 Lymphocytes/100 WBC (Bld) 25.6 % 19-41 [facility] Blood monocytes/100 leukocyt esOrdered By: Dr. Hector on 12-03-2021 Monocytes/100 WBC (Bld) 7.2 % 0-10 [facility] Blood platelet mean volumeOr dered By: Dr. Hector on 12-03-2021 Platelet mean volume (Bld) [Entitic vol] 10.5 fL 6.2-12.0 [facility] Determination of erythrocyte mean corpuscular volume (MCV)Ordered By: Dr. Hector on 12-03-2021 MCV (RBC) [Entitic vol] 89.7 fL 81-99 [facility] Hematocrit Auto (Bld) [Volum e fraction]Ordered By: Dr. Hector on 12-03-2021 Hematocrit (Bld) [Volume fraction] 42.7 % 37-47 [facility] - Chemistry and C hemistry - challengeOrdered By: Dr. Hector on 12-03-2021 ALP [Catalytic activity/Vol] 69 U/L 45-117 [facility] ALT [Catalytic activity/Vol] 41 U/L 13-56 [facility] CO2 [Moles/Vol] 30.0 mmol/L 21.0-32.0 [facility] Cobalamin (Vitamin B12) [Mass/Vol] 640 pg/mL 211-911 [facility] Free T4 [Mass/Vol] 0.93 ng/dL 0.76-1.46 [facility] Globulin (S) [Mass/Vol] 4.0 g/dL 2.2-4.2 [facility] Urea nitrogen/Creatinine [Mass ratio] 42.8 mg/mg 10-20 [facility] - Hematology and Cell countsOrdered By: Dr. Hector on 12-03-2021 Erythrocyte distribution width (RBC) [Entitic vol] 42.3 fL 35.1-43.9 [facility] Erythrocyte distribution width (RBC) [Ratio] 12.7 % 11.6-14.6 [facility] Immature granulocytes/100 WBC (Bld) 0.100 % 0.0-0.9 [facility] Comment on above: IG% - Immature Granu locytes (promyelocytes, myelocytes and metamyelocytes) > 1% indicates that a LEFT SHIFT is Present. MCH (RBC) [Entitic mass] 29.6 pg 27.0-32.0 [facility] Nucleated RBC/100 WBC (Bld) [Ratio] 0 % 0-5 [facility] MCHC Auto (RBC) [Mass/Vol]Or dered By: Dr. Hector on 12-03-2021 MCHC (RBC) [Mass/Vol] 33.0 g/dL 32-36 [facility] No Panel InformationOrdered By: Dr. Hector on 12-03-2021 Estimated GFR (MDRD) Amer 103 mL/min >60 [facility] Comment on above: GFR Calc Estimated GFR (MDRD) Non-Af Amer 85 mL/min >60 [facility] Comment on above: Non- GFR Calc Thyroid Stimulating Hormone (TSH) 1.75 uIU/mL 0.358-3.74 [facility] Platelets bldOrdered By: Dr. Hector on 12-03-2021 Platelets (Bld) [#/Vol] 257 10*3/uL 150-450 [facility] Serum or plasma albumin aminta urement (mass/volume)Ordered By: Dr. Hector on 12-03-2021 Albumin [Mass/Vol] 3.7 g/dL 3.2-5.0 [facility] Serum or plasma albumin/glob ulin mass ratioOrdered By: Dr. Hector on 12-03-2021 Albumin/Globulin [Mass ratio] 0.9 {ratio} 0.9-2.4 [facility] Serum or plasma calcium aminta urement (mass/volume)Ordered By: Dr. Hector on 12-03-2021 Calcium [Mass/Vol] 9.4 mg/dL 8.5-10.1 [facility] Serum or plasma cholesterol in HDL measurement (mass/volume)Ordered By: Dr. Hector on 12-03-2021 Cholesterol in HDL [Mass/Vol] 88 mg/dL >40 [facility] Comment on above: The drugs N-Acetylcy steine and Metamizole may falsely depress this assay. Reference Range HDL <40 mg/dL Low HDL Cholesterol HDL >or= 60 mg/dL High HDL Cholesterol Serum or plasma cholesterol in VLDL measurement (mass/volume)Ordered By: Dr. Hector on 12-03-2021 Cholesterol in VLDL [Mass/Vol] 24 mg/dL 5-40 [facility] Serum or plasma creatinine m easurement (mass/volume)Ordered By: Dr. Hector on 12-03-2021 Creatinine [Mass/Vol] 0.72 mg/dL 0.55-1.02 [facility] Comment on above: The validity of the calculated GFR & GFRAA in patients over 70 years has not been determined. Clinical correlation is essential. Serum or plasma low density lipoprotein (LDL) cholesterol measurement (mass/volume)Ordered By: Dr. Hector on 12-03-2021 Cholesterol in LDL [Mass/Vol] 124 mg/dL 0-130 [facility] Serum or plasma urea nitroge n measurement (mass/volume)Ordered By: Dr. Hector on 12-03-2021 Urea nitrogen [Mass/Vol] 31 mg/dL 7-18 [facility] Thin prep Papanicolaou smear with manual screeningOrdered By: Dr. Hector on 12-03-2021 Thin prep Papanicolaou smear with manual screening 25 U/L 15-37 [facility] Thin prep Papanicolaou smear with manual screening 4 5-15 [facility] Stool gastrointestinal hemog lobin detection by immunologic method Lower GI hemoglobin IA Ql (Stl) [facility] Work Phone: Vital Signs Date Time Vital Sign Value Performing Clinician Emigdio barnes 08-16-2024 14:08-0400 Body height 170.[address] Domenic Hector MD Work Phone: [facility] 08-16-2024 14:08-0400 Body mass index (BMI) [Ratio] 37.1 kg/m2 Dr. Domenic Hector MD Work Phone: [facility] 08-16-2024 14:08-0400 Body temperature 98.2 [degF] Dr. Domenic Hector MD Work Phone: [facility] 08-16-2024 14:08-0400 Body weight 107.[address] Domenic Hector MD Work Phone: [facility] 08-16-2024 14:08-0400 Diastolic blood pressure 84 mm[Hg] Dr. Domenic Hector MD Work Phone: [facility] 08-16-2024 14:08-0400 Heart rate 90 /min Dr. Domenic Hector MD Work Phone: [facility] 08-16-2024 14:08-0400 Respiratory rate 16 /min Dr. Domenic Hector MD Work Phone: [facility] 08-16-2024 14:08-0400 SaO2% (BldA) [Mass fraction] 98 % Dr. Domenic Hector MD Work Phone: [facility] 08-16-2024 14:08-0400 Systolic blood pressure 136 mm[Hg] Dr. Domenic Hector MD Work Phone: [facility] 12-23-2022 14:26-0400 Body height 170.[address] Domenic Hector Work Phone: [facility] 12-23-2022 14:26-0400 Body mass index (BMI) [Ratio] 37.9 kg/m2 Dr. Domenic Hector Work Phone: [facility] 12-23-2022 14:26-0400 Body temperature 98.4 [degF] Dr. Domenic Hector Work Phone: [facility] 12-23-2022 14:26-0400 Body weight 109.[address] Domenic Hector Work Phone: [facility] 12-23-2022 14:26-0400 Diastolic blood pressure 88 mm[Hg] Dr. Domenic Hector Work Phone: [facility] 12-23-2022 14:26-0400 Heart rate 89 /min Dr. Domenic Hector Work Phone: [facility] 12-23-2022 14:26-0400 Respiratory rate 16 /min Dr. Domenic Hector Work Phone: [facility] 12-23-2022 14:26-0400 SaO2% (BldA) [Mass fraction] 98 % Dr. Domenic Hector Work Phone: [facility] 12-23-2022 14:26-0400 Systolic blood pressure 148 mm[Hg] Dr. Domenic Hector Work Phone: [facility] 10-04-2022 13:29-0400 Body height 170.[address] Domenic Hector Work Phone: [facility] 10-04-2022 13:29-0400 Body mass index (BMI) [Ratio] 37.4 kg/m2 Dr. Domenic Hector Work Phone: [facility] 10-04-2022 13:29-0400 Body temperature 97 [degF] Dr. Domenic Hector Work Phone: [facility] 10-04-2022 13:29-0400 Body weight 108.[address] Domenic Hector Work Phone: [facility] 10-04-2022 13:29-0400 Diastolic blood pressure 79 mm[Hg] Dr. Domenic Hector Work Phone: [facility] 10-04-2022 13:29-0400 Heart rate 98 /min Dr. Domenic Hector Work Phone: [facility] 10-04-2022 13:29-0400 Respiratory rate 18 /min Dr. Domenic Hector Work Phone: [facility] 10-04-2022 13:29-0400 SaO2% (BldA) [Mass fraction] 100 % Dr. Domenic Hector Work Phone: [facility] 10-04-2022 13:29-0400 Systolic blood pressure 139 mm[Hg] Dr. Domenic Hector Work Phone: [facility] 03-18-2022 15:20-0500 Body height 170.18 cm No Primary Care Physician [facility] 03-18-2022 15:17-0500 Body mass index (BMI) [Ratio] 35.3 kg/m2 No Primary Care Physician [facility] 03-18-2022 15:17-0500 Body temperature 97.2 [degF] No Primary Care Physician [facility] 03-18-2022 15:17-0500 Body weight 102.28 kg No Primary Care Physician [facility] 03-18-2022 15:17-0500 Diastolic blood pressure 95 mm[Hg] No Primary Care Physician [facility] 03-18-2022 15:17-0500 Heart rate 80 /min No Primary Care Physician [facility] 03-18-2022 15:17-0500 Respiratory rate 16 /min No Primary Care Physician [facility] 03-18-2022 15:17-0500 SaO2% (BldA) [Mass fraction] 95 % No Primary Care Physician [facility] 03-18-2022 15:17-0500 Systolic blood pressure 157 mm[Hg] No Primary Care Physician [facility] 03-18-2022 14:27-0500 Body mass index (BMI) [Ratio] 35.3 kg/m2 No Primary Care Physician [facility] 03-18-2022 14:27-0500 Body temperature 98.3 [degF] No Primary Care Physician [facility] 03-18-2022 14:27-0500 Body weight 102.28 kg No Primary Care Physician [facility] 03-18-2022 14:27-0500 Diastolic blood pressure 99 mm[Hg] No Primary Care Physician [facility] 03-18-2022 14:27-0500 Heart rate 90 /min No Primary Care Physician [facility] 03-18-2022 14:27-0500 Respiratory rate 17 /min No Primary Care Physician [facility] 03-18-2022 14:27-0500 SaO2% (BldA) [Mass fraction] 97 % No Primary Care Physician [facility] 03-18-2022 14:27-0500 Systolic blood pressure 157 mm[Hg] No Primary Care Physician [facility] 03-03-2022 16:01-0500 Body mass index (BMI) [Ratio] 34.7 kg/m2 No Primary Care Physician [facility] 03-03-2022 16:01-0500 Body temperature 98.3 [degF] No Primary Care Physician [facility] 03-03-2022 16:01-0500 Body weight 100.69 kg No Primary Care Physician [facility] 03-03-2022 16:01-0500 Diastolic blood pressure 84 mm[Hg] No Primary Care Physician [facility] 03-03-2022 16:01-0500 Heart rate 100 /min No Primary Care Physician [facility] 03-03-2022 16:01-0500 Respiratory rate 16 /min No Primary Care Physician [facility] 03-03-2022 16:01-0500 SaO2% (BldA) [Mass fraction] 97 % No Primary Care Physician [facility] 03-03-2022 16:01-0500 Systolic blood pressure 150 mm[Hg] No Primary Care Physician [facility] 02-17-2022 13:45-0500 Body temperature 99.2 [degF] No Primary Care Physician [facility] 02-17-2022 13:45-0500 Diastolic blood pressure 67 mm[Hg] No Primary Care Physician [facility] 02-17-2022 13:45-0500 Heart rate 95 /min No Primary Care Physician [facility] 02-17-2022 13:45-0500 Respiratory rate 16 /min No Primary Care Physician [facility] 02-17-2022 13:45-0500 SaO2% (BldA) [Mass fraction] 97 % No Primary Care Physician [facility] 02-17-2022 13:45-0500 Systolic blood pressure 124 mm[Hg] No Primary Care Physician [facility] 02-17-2022 10:33-0500 Body height 170.18 cm No Primary Care Physician [facility] Work Phone: 02-17-2022 10:33-0500 Body mass index (BMI) [Ratio] 33.5 kg/m2 No Primary Care Physician [facility] 02-17-2022 10:33-0500 Body weight 97.06 kg No Primary Care Physician [facility] 02-05-2022 15:30-0500 Body temperature 97.6 [degF] No Primary Care Physician [facility] 02-05-2022 15:30-0500 Diastolic blood pressure 74 mm[Hg] No Primary Care Physician [facility] 02-05-2022 15:30-0500 Heart rate 86 /min No Primary Care Physician [facility] 02-05-2022 15:30-0500 Respiratory rate 16 /min No Primary Care Physician [facility] 02-05-2022 15:30-0500 SaO2% (BldA) [Mass fraction] 95 % No Primary Care Physician [facility] 02-05-2022 15:30-0500 Systolic blood pressure 147 mm[Hg] No Primary Care Physician [facility] 02-05-2022 09:26-0500 Body height 170.18 cm No Primary Care Physician [facility] Work Phone: 02-05-2022 09:26-0500 Body mass index (BMI) [Ratio] 33.8 kg/m2 No Primary Care Physician [facility] 02-05-2022 09:26-0500 Body weight 98 kg No Primary Care Physician [facility] 12-24-2021 14:19-0400 Body temperature 97.2 [degF] No Primary Care Physician [facility] 12-24-2021 14:19-0400 Body weight 96.16 kg No Primary Care Physician [facility] 12-24-2021 14:19-0400 Diastolic blood pressure 93 mm[Hg] No Primary Care Physician [facility] 12-24-2021 14:19-0400 Heart rate 104 /min No Primary Care Physician [facility] 12-24-2021 14:19-0400 Respiratory rate 17 /min No Primary Care Physician [facility] 12-24-2021 14:19-0400 SaO2% (BldA) [Mass fraction] 99 % No Primary Care Physician [facility] 12-24-2021 14:19-0400 Systolic blood pressure 161 mm[Hg] No Primary Care Physician [facility] 12-03-2021 14:18-0400 Body height 170.18 cm No Primary Care Physician [facility] Work Phone: 12-03-2021 14:18-0400 Body mass index (BMI) [Ratio] 32.5 kg/m2 No Primary Care Physician [facility] 12-03-2021 14:18-0400 Body temperature 98.1 [degF] No Primary Care Physician [facility] 12-03-2021 14:18-0400 Body weight 94.34 kg No Primary Care Physician [facility] 12-03-2021 14:18-0400 Diastolic blood pressure 88 mm[Hg] No Primary Care Physician [facility] 12-03-2021 14:18-0400 Heart rate 82 /min No Primary Care Physician [facility] 12-03-2021 14:18-0400 Respiratory rate 14 /min No Primary Care Physician [facility] 12-03-2021 14:18-0400 SaO2% (BldA) [Mass fraction] 99 % No Primary Care Physician [facility] 12-03-2021 14:18-0400 Systolic blood pressure 144 mm[Hg] No Primary Care Physician [facility] Encounters Encounter Date Encounter Type Care Provider Facility Start: 01-09-2025 ambulatory Edouard Ann Facility:[facility] [place] Start: 08-16-2024 End: 08-16-[address] Edouard Ann MD -[facility] Work Phone: Start: 08-16-[address] Edouard Ann MD -[facility] Start: 08-16-2024 End: 08-16-[address] Domenic Hector MD Work Phone: [facility] Work Phone: Start: 08-09-2024 End: 08-09-[address] Domenic Hector MD Work Phone: [facility] Work Phone: Start: 08-09-2024 End: 08-09-[address] Edouard Ann MD -[facility] Work Phone: Start: 08-09-2024 End: 08-09-2024 ambulatory Domenic Hector Facility:[facility] Start: 01-10-2023 End: 01-10-[address] Domenic Hector Work Phone: [facility] Work Phone: Start: 01-10-2023 End: 01-10-[address] Domenic Hector Work Phone: [facility] Work Phone: Start: 12-23-2022 End: 12-23-[address] Domenic Hector Work Phone: [facility] Work Phone: Start: 12-20-2022 End: 12-20-[address] Domenic Hector Work Phone: [facility] Work Phone: Start: 12-20-2022 End: 12-20-[address] Domenic Hector Work Phone: [facility] Work Phone: Start: 10-04-2022 End: 10-04-[address] Domenic Hector Work Phone: [facility] Work Phone: Start: 09-06-2022 End: 09-06-[address] Domenic Hector Work Phone: [facility] Work Phone: Start: 03-18-2022 End: 03-18-2022 Patient encounter procedure No Primary Care Physician [facility] Start: 03-18-2022 Registered Recurring No Primar y Care Physician [facility] Start: 03-10-2022 End: 03-10-2022 ambulatory No Primary Care Physician [facility] Work Phone: Start: 03-10-2022 End: 03-10-2022 Patient encounter procedure No Primary Care Physician [facility] Start: 03-08-2022 End: 03-08-2022 ambulatory No Primary Care Physician [facility] Work Phone: Start: 03-08-2022 End: 03-08-2022 Patient encounter procedure No Primary Care Physician [facility]-Nuclear [facility], [facility] Start: 03-04-2022 End: 03-04-2022 Patient encounter procedure No Primary Care Physician [facility] Start: 03-03-2022 End: 03-03-2022 Patient encounter procedure No Primary Care Physician [facility] Start: 02-17-2022 Non-patient / Non-visit No Ashley sanjeev Care Physician [facility] Start: 02-17-2022 End: 02-17-2022 Admission to same day surgery center No Primary Care Physician [facility] Start: 02-17-2022 End: 02-17-2022 ambulatory No Primary Care Physician [facility] Work Phone: Start: 02-05-2022 Non-patient / Non-visit No Ashley sanjeev Care Physician [facility] Start: 02-05-2022 End: 02-05-2022 Admission to same day surgery center No Primary Care Physician [facility] Start: 02-05-2022 End: 02-05-2022 ambulatory No Primary Care Physician [facility] Work Phone: Start: 01-18-2022 End: 01-18-2022 Patient encounter procedure No Primary Care Physician [facility] Start: 01-12-2022 End: 01-12-2022 ambulatory No Primary Care Physician [facility] Work Phone: Start: 01-12-2022 End: 01-12-2022 Patient encounter procedure No Primary Care Physician [facility] Start: 12-24-2021 End: 12-24-2021 ambulatory No Primary Care Physician [facility] Work Phone: Start: 12-24-2021 End: 12-24-2021 Patient encounter procedure No Primary Care Physician [facility]-Laboratory, Specimen Start: 12-24-2021 End: 12-24-2021 Patient encounter procedure No Primary Care Physician [facility] Start: 12-18-2021 End: 12-18-2021 Patient encounter procedure No Primary Care Physician [facility]-Outpatient Breast Imaging Start: 12-03-2021 End: 12-03-2021 ambulatory No Primary Care Physician [facility] Work Phone: Start: 12-03-2021 End: 12-03-2021 Patient encounter procedure No Primary Care Physician [facility] Start: 03-12-2017 End: 03-12-2017 Ambulatory Mohit Tellez Facility:[facility] Procedures Date Procedure Procedure Detail Performing Clinician Start: 08-16-[address] Domenic Hector MD Work Phone: Start: 08-09-2024 CT of thorax with contrast Dr. Domenic Hector MD Work Phone: Start: 02-08-[address] of whole body Dr. Domenic klein MD Work Phone: Start: 01-10-2023 CT of thorax with contrast Dr. Domenic Hector Work Phone: Start: 12-20-[address] Domenic tabor Work Phone: Start: 03-10-2022 CT of chest and abdomen No Primary Care Physician Start: 03-08-2022 Radionuclide whole body bone study No Primary Care Physician Start: 02-17-2022 Breast, Lumpectomy,SN w/ Neoprobe (Right) No Primary Care Physician Start: 02-05-2022 Specimen mammography No Primary Care Physician Start: 02-05-2022 Breast, Lumpectomy,SN w/ Neoprobe (Right) No Primary Care Physician Start: 02-05-2022 Radionuclide sentinel lymph node study No Primary Care Physician Start: 01-12-2022 MRI of bilateral breasts with contrast No Primary Care Physician Start: 12-18-2021 Bilateral mammography No Primary Care Physician Start: 12-18-2021 Ultrasonography of breast No Primary Car e Physician H/O: surgery History of lumpe ctomy of right breast Dr. Domenic Hector Work Phone: Measurement of occul t blood in stool specimen using immunoassay No Primary Care Physician Measurement of occul t blood in stool specimen using immunoassay No Primary Care Physician Plan of Treatment Date Care Activity Detail Author Start: 08-16-2024 Cancer Ag 125 [Units/volume] in Serum or Plasma [facility] Start: 08-16-2024 Cancer Ag 15-3 [Presence] in Serum or Plasma [facility] Start: 08-16-2024 Cancer Ag 27-29 [Presence] in Serum or Plasma [facility] Start: 08-16-2024 Carcinoembryonic Ag [Mass/volume] in Serum or Plasma [facility] Start: 08-16-2024 [facility] Start: 02-17-2022 Anesthesia radical/modified radical breast ANESTH SURGERY OF BREAST [facility] Start: 02-17-2022 Mastectomy partial PARTIAL MASTECTOMY [facility] Start: 02-17-2022 Patient discharge [facility] Start: 02-05-2022 Bx/exc lymph node open deep axillary node BIOPSY/REMOVAL LYMPH NODES [facility] Start: 02-05-2022 Intraop sentinel lymph node id w/dye injection IO MAP OF SENT LYMPH NODE [facility] Start: 02-05-2022 Perq breast loc device placemt 1st les us imag PERQ DEV BREAST 1ST US IMAG [facility] Start: 02-05-2022 Patient discharge [facility] Start: 01-18-2022 Patient referral [facility] Work Phone: MG Breast - bilatera l Diagnostic [facility] Work Phone: MG Breast - bilatera l Screening [facility] MR Breast - bilatera l WO and W contrast IV [facility] Work Phone: Patient referral [facility] Work Phone: US Breast limited [facility] Work Phone: Payers Date Payer Category Payer Self-pay [id number] 2022 Unknown [id number] Unknown [id number] Unknown [id number] [id number] [id number] Unknown [id number] [id number] [id number] Unknown [id number] [id number] [id number] Unknown [id number] [id number] Social History Date Type Detail Facility Start: 12-03-2021 End: 03-03-2022 Tobacco smoking status CAIS Unknown if ever smoked [facility] Start: 1955 Sex Assigned At Female W [facility] Start: 03-03-2022 Tobacco smoking stat us CAIS Never smoked tobacco (finding) [facility] Medical Equipment Procedure Code Equipment Code Equipment Origin al Text Equipment Identifier Dates Ligation clip, metallic ()[id number] FDA Start: 02-05-2022 Ligation clip, metallic ()[id number] FDA Start: 02-05-2022 Goals Date Patient Goal Desired Activity /State Mental Status Date Assessment Result Facility 02-17-2022 Cognitive function Voice/Name [facility] Work Phone: 02-05-2022 Cognitive function Voice/Name [facility] Work Phone: Clinical Notes 08-10-2024 to 08-16-2024 Note Date & Type Note Facility 08-16-2024 Evaluation note Diagnosis Onset Date Resolution Invasive ductal carcinoma of right breast chronic August 16, 2024 1:20pm Lung nodule chronic August 16 1:20pm [facility] Work Phone: 1(537) 542-188606-26-2025 Progress [facility] Tevin Lazar [place], [place] [address] OFFICE VISIT Date of Service: 08/16/24 1408 MR#: [id number] Acct: [id number] Name: LEYLA COLÓN Rep #: [id number] : 1955 From: Edouard Ann MD Age/Sex: 69/F Location: [facility] Status: Signed HPI Subjective Date of Service 08/16/24 Chief Complaint Breast cancer follow up History of Present Illness 69-year-old woman presented with right breast mass and retraction of right nipple. Had a mammogram done on which showed 2.4 cm irregular nodule in the central area of the right breast on 12/18/2021. Ultrasound of the right breast showed 2.6 cm heterogeneous mass at 2 o'clock position. 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 MRI of the right breasts on 01/12/2022 showed 3.1 cm mass at approximately 3 o'clock position with right axillary node, left breast showed no masses. She underwent right lumpectomy and sentinel node dissection on 02/05/2022. Pathology demonstrated grade 2 invasive ductal carcinoma with mucinous differentiation measuring 3 x 2.5 x 2 cm.? There was also associated grade 2 DCIS on 05/02 blocks comprising less than 10% of the total tumor volume.? Lymph vascular invasion not identified.? Margins negative with the distance to the invasive disease being 1 mm in the posterior, 3 mm anterior, and 4 mm inferior and distance to the DCIS being 3 mm medially, 1/2 LNs contained metastatic disease which measured 1.5 x 1 cm. pT2 pN1a. On 02/17/22, underwent revision ofsuperior margin. CT C/A/P obtained 03/10/22 and NM bone scan done 03/08/22 showedno evidence of distant metastatic disease. Oncotype DX . Patient declined chemotherapy. Completed adjuvantradiation 04/12/22-05/10/22. May 2022 patient elected tamoxifen over AI. An rx for tamoxifen was sent to her preferred pharmacy however patient ultimately chose not to proceed with adjuvant endocrinetherapy. Had cough so CT chest on 01/10/2023 showed R middle lobe nodule. Had PET/CT on 02/08/2023 which was negative. She is on observation. Had CT chest done and comes for follow up. 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 Invasive ductal carcinoma of right breast Abnormal QXN-jo-jdzfjjljoe ratio Anxiety and depression Hypertension Kidney disease Surgical History History of lumpectomy of right breast History of tonsillectomy Hx of tubal ligation Family History Other Asthma Depression Social History Smoking Status: Never smoker alcohol intake: never substance use type: does not use what type of physical activity do you participate in: none 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, 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 Intake Vital Signs 10/06/23 14:07 08/16/24 14:08 Height 5 ft 7 in 5 ft 7 in Weight: 107.671 kg BMI 37.1 BP 136/84 H Blood Pressure Location Lt brachial Position Sitting Respiration 16 Pulse 90 Pulse Source Monitor Temp 98.2 F Temperature Source Temporal Artery Pulse Oximetry (%) 98 Oxygen Delivery Method room air Intake Accompanied by: Self Is patient in pain?: No Allergies No Known Allergies Allergy (Verified 08/16/24 14:14) Medications ?Medication ?Instructions ?Recorded ?Confirmed ?Type magnesium oxide 500 mg capsule 500 mg PO DAILY 3 08/16/24 History lactobacillus combination no.4 3 3,000 mmu cells PO DA CARLOS PRN 08/23/23 08/16/24 History billion cell capsule (Probiotic) Have you fallen in the past year?: No Central Venous Access Central Venous Access: No 12/22/2023 Mammogram reviewed. BI/SCRN MAMM (CAD)W/MARIELLE BILAT IMPRESSION: Stable bilateral screening mammogram. Yearly follow-up mammogram recommended. (A) Exam Physical Exam Const alert and oriented x3 HEENT normocephalic Mouth: oral and palatal mucosa normal Eyes conjunctivae normal and no scleral icterus Sclera: sclera normal Neck no lymphadenopathy and supple Chest Chest Narrative: Breast exam deferred Resp normal respiratory effort and clear to auscultation bilaterally Effort and Inspection: able to speak in complete sentences Auscultation: Negative for rhonchi or wheezes Cardio regular rate, regular rhythm, S1 normal heart sound and S2 normal heart sound GI normal to inspection, nondistended, normoactive bowel sounds, soft to palpation and non-tender GI Narrative: Difficult to assess for hepatosplenomegaly d/t central obesity Back/Spine no thoracic nor lumbar tenderness Extremity no clubbing, cyanosis or edema and no calf tenderness Skin no rashes or lesions noted, no jaundice and no petechiae General Skin Exam: Negative for ecchymosis Neuro oriented x3 and CN's II-XII intact bilaterally Psych mental status grossly normal and affect normal Attitude: calm and engaged Coding Level of Care Code Off vis,est,level 4 Exam Problem Focused Diagnoses Invasive ductal carcinoma of right breast C50.911 Lung nodule R91.1 Assessment and Plan Assessment and Plan (1) Invasive ductal carcinoma of right breast: Status: Chronic Comment: Invasive Ductal carcinoma, 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 Pathologic stage pT2 pN1a. Prognostic stage IB. Post menopausal. Oncotype DX recurrence score 22, there is no clear benefits from chemotherapy. CT c/a/p 03/10/2022 showed no evidence of metastatic disease. Bone scan 03/08/2022 showed no evidence of metastatic disease. Completed adjuvant radiation therapy. Declined adjuvant hormone therapy. On observation. Labs reviewed, within normal limits. No evidence of disease clinically. Plan: To continue observation. Check tumor markers. RTC 1 yr. (2) Lung nodule: Status: Chronic Comment: CT on 01/10/2023 showed R middle lobe nodule. PET/CT 02/08/2023 reviewed, showed no activity suggestive of metastatic diseas CT chest 08/11/2023 reviewed, decreasing R middle lobe nodule. Comes for follow up. CT08/09/2024 reviewed, stable nodule in RML. Discussed findings with Pt, no need to repeat CT. Plan: To continue observation. Clinical Quality Measures Falls Risk Screening/Assistive Devices Have you fallen in the past year?: No 08/16/24 1436 D> Date _ Edouard Ann MD [facility] Signature: Date (if applicable) CC: Dr. Domenic Hector MD ~ [facility]06-26-2025 Progress note Author Edouard Ann [facility] Note Date/Time August 16, 2024 2:36 pm [facility] [address] [place] [id number] OFFICE VISIT Date of Service: 08/16/24 1408 MR#: [id number] Acct: [id number] Name: LEYLA COLÓN Rep #: [id number] : 1955 From: Edouard Ann MD Age/Sex: 69/F Location: [facility] Status: Signed HPI Subjective Date of Service 08/16/24 Chief Complaint Breast cancer follow up History of Present Illness 69-year-old woman presented with right breast mass and retraction of right nipple. Had a mammogram done on which showed 2.4 cm irregular nodule in the central area of the right breast on 12/18/2021. Ultrasound of the right breast showed 2.6 cm heterogeneous mass at 2 o'clock position. 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 MRI of the right breasts on 01/12/2022 showed 3.1 cm mass at approximately 3 o'clock position with right axillary node, left breast showed no masses. She underwent right lumpectomy and sentinel node dissection on 02/05/2022. Pathology demonstrated grade 2 invasive ductal carcinoma with mucinous differentiation measuring 3 x 2.5 x 2 cm.? There was also associated grade 2 DCIS on 05/02 blocks comprising less than 10% of the total tumor volume.? Lymph vascular invasion not identified.? Margins negative with the distance to the invasive disease being 1 mm in the posterior, 3 mm anterior, and 4 mm inferior and distance to the DCIS being 3 mm medially, 1/2 LNs contained metastatic disease which measured 1.5 x 1 cm. pT2 pN1a. On 02/17/22, underwent revision ofsuperior margin. CT C/A/P obtained 03/10/22 and NM bone scan done 03/08/22 showedno evidence of distant metastatic disease. Oncotype DX . Patient declined chemotherapy. Completed adjuvant radiation 04/12/22-05/10/22. May 2022 patient elected tamoxifen over AI. An rx for tamoxifen was sent to her preferred pharmacy however patient ultimately chose not to proceed with adjuvant endocrinetherapy. Had cough so CT chest on 01/10/2023 showed R middle lobe nodule. Had PET/CT on 02/08/2023 which was negative. She is on observation. Had CT chest done and comes for follow up. 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 Invasive ductal carcinoma of right breast Abnormal WMZ-no-fpydjvlfya ratio Anxiety and depression Hypertension Kidney disease Surgical History History of lumpectomy of right breast History of tonsillectomy Hx of tubal ligation Family History Other Asthma Depression Social History Smoking Status: Never smoker alcohol intake: never substance use type: does not use what type of physical activity do you participate in: none 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, 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 Intake Vital Signs 10/06/23 14:07 08/16/24 14:08 Height 5 ft 7 in 5 ft 7 in Weight: 107.671 kg BMI 37.1 BP 136/84 H Blood Pressure Location Lt brachial Position Sitting Respiration 16 Pulse 90 Pulse Source Monitor Temp 98.2 F Temperature Source Temporal Artery Pulse Oximetry (%) 98 Oxygen Delivery Method room air Intake Accompanied by: Self Is patient in pain?: No Allergies No Known Allergies Allergy (Verified 08/16/24 14:14) Medications ?Medication ?Instructions ?Recorded ?Confirmed ?Type magnesium oxide 500 mg capsule 500 mg PO DAILY 3 08/16/24 History lactobacillus combination no.4 3 3,000 mmu cells PO DA CARLOS PRN 08/23/23 08/16/24 History billion cell capsule (Probiotic) Have you fallen in the past year?: No Central Venous Access Central Venous Access: No 12/22/2023 Mammogram reviewed. BI/SCRN MAMM (CAD)W/[place] BILAT IMPRESSION: Stable bilateral screening mammogram. Yearly follow-up mammogram recommended. (A) Exam Physical Exam Const alert and oriented x3 HEENT normocephalic Mouth: oral and palatal mucosa normal Eyes conjunctivae normal and no scleral icterus Sclera: sclera normal Neck no lymphadenopathy and supple Chest Chest Narrative: Breast exam deferred Resp normal respiratory effort and clear to auscultation bilaterally Effort and Inspection: able to speak in complete sentences Auscultation: Negative for rhonchi or wheezes Cardio regular rate, regular rhythm, S1 normal heart sound and S2 normal heart sound GI normal to inspection, nondistended, normoactive bowel sounds, soft to palpation and non-tender GI Narrative: Difficult to assess for hepatosplenomegaly d/t central obesity Back/Spine no thoracic nor lumbar tenderness Extremity no clubbing, cyanosis or edema and no calf tenderness Skin no rashes or lesions noted, no jaundice and no petechiae General Skin Exam: Negative for ecchymosis Neuro oriented x3 and CN's II-XII intact bilaterally Psych mental status grossly normal and affect normal Attitude: calm and engaged Coding Level of Care Code Off vis,est,level 4 Exam Problem Focused Diagnoses Invasive ductal carcinoma of right breast C50.911 Lung nodule R91.1 Assessment and Plan Assessment and Plan (1) Invasive ductal carcinoma of right breast: Status: Chronic Comment: Invasive Ductal carcinoma, 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 Pathologic stage pT2 pN1a. Prognostic stage IB. Post menopausal. Oncotype DX recurrence score 22, there is no clear benefits from chemotherapy. CT c/a/p 03/10/2022 showed no evidence of metastatic disease. Bone scan 03/08/2022 showed no evidence of metastatic disease. Completed adjuvant radiation therapy. Declined adjuvant hormone therapy. On observation. Labs reviewed, within normal limits. No evidence of disease clinically. Plan: To continue observation. Check tumor markers. RTC 1 yr. (2) Lung nodule: Status: Chronic Comment: CT on 01/10/2023 showed R middle lobe nodule. PET/CT 02/08/2023 reviewed, showed no activity suggestive of metastatic diseas CT chest 08/11/2023 reviewed, decreasing R middle lobe nodule. Comes for follow up. CT08/09/2024 reviewed, stable nodule in RML. Discussed findings with Pt, no need to repeat CT. Plan: To continue observation. Clinical Quality Measures Falls Risk Screening/Assistive Devices Have you fallen in the past year?: No 08/16/24 1436 <Electronically signed by Edouard Stuart> Date _ Edouard Ann MD Cos[employer] Signature: Date (if applicable) CC: Dr. Domenic Hector MD ~ [facility] Work Phone: [phone]) 198-657806-20-2025 Radiology Diagnostic study note [facility] Imaging Services [address] [place] [address] [id number] Chest WITH Contrast MR#: [id number] Acct: [id number] Name: LEYLA COLÓN Rep #: [id number] : 1955 F 69 From: Todd Simmons MD PCP: Dr. Domenic Hecotr MD Status: R EG CLI Study:Chest WITH Contrast Date of Exam: 08/09/24 Exam# [id number] Ordering Dr: Guillermo Ann MD PROCEDURE: CHEST WITH CONTRAST 08/09/2024 REASON FOR EXAM: R LUNG NODULE, HX OF BREAST CA History of prior right lumpectomy. TECHNIQUE: CHEST WITH CONTRAST Coronal and Sagittal reconstruction series were provided. CONTRAST: Isovue 370 VOLUME: 100 mL One or more dose reduction techniques were used (e.g., Automated exposure control, adjustment of the mA and/or kV according to patient size, use of iterative reconstruction technique). RADIATION DOSE SUMMARY: CTDlvol: 8 mGy DLP: 465.82 mGycm COMPARISON: Prior study dated August 11, 2023. FINDINGS: Hardware: Surgical clips are seen in the right axilla. Stable postsurgical changes at the deep aspect of the right breast. Lymph nodes: No suspicious lymph nodes are seen. Heart and Vasculature: Heart is nonenlarged. No significant coronary artery calcification is seen. Lungs and Airways: Stable linear scarring in the anterior aspect of the right middle lobe most likely secondary to prior radiation therapy if patient received radiation. Stable 6 mm nodule at that site. Stable scarring at the lung bases. Pleura: No evidence of pleural effusion. Upper Abdomen: Unremarkable Bones: Degenerative changes of the thoracic spine. CT/Chest WITH Contrast IMPRESSION: Coronary artery calcification (CAC) is is absent Stable examination. Reading Location: [place] [address] CC: Dr. Domenic Hector MD; Dr. Edouard Ann MD ~ [employer] Teacher: [facility] Diagnosis Onset Date Resolution Status Lump of right breast acute Anxiety and depression chron ic Hypertension chronic [facility] Work Phone: Evaluation note* Diagnosis Onset Date Resolution Status Lump of right breast acute Anxiety and depression chron ic Hypertension chronic Abnormal mammogram of right breast acute Lymphadenopathy acute [facility] Work Phone: Evaluation note* Diagnosis Onset Date Resolution Status Anxiety and depression chron ic Hypertension chronic Invasive ductal carcinoma of right breast acute 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 [facility] Work Phone: Evaluation note* Diagnosis Onset Date Resolution Status Anxiety and depression chron ic Hypertension chronic Invasive ductal carcinoma of right breast acute 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 Invasive ductal carcinoma of right breast acute Invasive ductal carcinoma of right breast acute 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 Invasive ductal carcinoma of right breast acute Invasive ductal carcinoma of right breast acute [facility] Work Phone: Evaluation note* Diagnosis Onset Date Resolution Status History of lumpectomy of right breast acute Invasive ductal carcinoma of right breast acute 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 Invasive ductal carcinoma of right breast acute [facility] Work Phone: Evaluation note* Diagnosis Onset Date Resolution Status Invasive ductal carcinoma of right breast acute Cough acute Invasive ductal carcinoma of right breast acute Hypertension chronic [facility] Work Phone: Evaluation note* Diagnosis Onset Date Resolution Status Admit Date Invasive ductal carcinoma of right breast chronic August 16, 2024 1:20pm Lung nodule chronic August 16 1:20pm [facility] Work Phone: Reason for referral (narrative)No reason for referral [facility] Work Phone: Summary Purpose Family History No Family History Records Found Relationship Condition Age at Onset Recorded Date/T steven Not Specified Depression Unknown Asthma Unknown Advance Directives No Advanced Directives Records Found Advance Directive Response Recorded Date/ Time Living Will No May 17, 2021 2:21pm Power of Gym Teacher No May 17 2:21pm Advance Directive Response Recorded Date/ Time Living Will No May 17, 2021 1:21pm Power of Gym Teacher No May 17 1:21pm Advance Directive Response Recorded Date/ Time Living Will No January 26 3:22pm Power of Gym Teacher No January 26, 2022 3:22pm Advance Directive Response Recorded Date/ Time Living Will No February 12, 2 022 10:17am Power of Gym Teacher No February 12, 2022 10:17am Advance Directive Response Recorded Date/ Time Living Will No March 03 5:07pm Power of Gym Teacher No March 03, 2022 5:07pm Advance Directive Response Recorded Date/ Time Living Will No March 03 6:07pm Power of Gym Teacher No March 03, 2022 6:07pm Advance Directive Response Recorded Date/ Time Living Will No March 03 6:07pm Do you have a Healthcare Power of Gym Teacher? 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 Invasive ductal carcinoma of right breast Invasive ductal carcinoma of right breast 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 Invasive ductal carcinoma of right breast Invasive ductal carcinoma of right breast Chief Complaint RIGHT BREAST 6 month F/U 4 month f/u breast SCREENING Reason for Visit History of lumpectom y of right breast Invasive ductal carcinoma of right breast 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 August 16, 2024 1:18 pm 1YR LABS REVIEW CT August 16, 2024 1:20 pm Reason for Visit Admit Date Invasive ductal carcinoma of right breas t August 16, 2024 1:20pm Lung nodule August 16, 2024 1:20 pm Additional Source Comments INFORMATION SOURCE (unrecogn ized section and content) DATE CREATED AUTHOR 08/15/2017 [facility] DATE CREATED AUTHOR AUTHOR'S ORGANIZ ATION 12/23/2024 [facility] Goals (unrecognized section and content) Goals may be documented in a n alternate sectionGoals may be documented in an alternate sectionGoals may be documented in an alternate sectionGoals may be documented in an alternate sectionGoals may be documented in an alternate sectionGoals may be documented in an alternate sectionGoals may be documented in an alternate section Care Teams (unrecognized sec tion and content) Team Status: Active Member Role Status Dates Dr. Domenic Hector MD Primary Care Provider Active Team Status: Inactive Member Role Status Dates Dr. Domenic Hector MD Primary Care Provider Active Start: August 09, 2024 End: August 09, 2024 Dr. Edouard Ann MD Attending Provider Active S tart: August 09, 2024 End: August 09, 2024 Dr. Edouard Ann MD Referring Provider Active S tart: August 09, 2024 End: August 09, 2024 Team Status: Active Member Role Status Dates Dr. Domenic Hector MD Primary Care Provider Active Start: August 16, 2024 Dr. Edouard Ann MD Attending Provider Active S tart: August 16, 2024 Dr. Edouard Ann MD Referring Provider Active S tart: August 16, 2024 Renae Kilgore MEDICAL PATHOLOGY TEACHER, MEDICAL PATHOLOGY TEACHER-C Other Provider Active St art: August 16, 2024 Team Status: Inactive Member Role Status Dates Dr. Domenic Hector MD Primary Care Provider Active Start: August 16, 2024 End: August 16, 2024 Dr. Domenic Hector MD Referring Provider Active Start: August 16, 2024 End: August 16, 2024 Dr. Edouard Ann MD Attending Provider Active S tart: August 16, 2024 End: August 16, 2024 Team Status: Active Member Role Status Dates No Primary Care Physician Family Provider Active Dr. Domenic Hector MD Primary Care Provider Active Team Status: Inactive Member Role Status Dates No Primary Care Physician Primary Care Provider, Refer ring Provider Active Dr. Domenic Hector MD Attending Provider Active Team Status: Inactive Member Role Status Dates Dr. Domenic Hector MD Primary Care Provider, Refer ring Provider Active Dr. Caron Simeon MD Attending Provider Active Team Status: Inactive Member Role Status Dates Dr. Domenic Hector MD Primary Care Provider Active Dr. Caron Simeon MD Attending Provider, Referring Provider Active Team Status: Active Member Role Status Dates Dr. Domenic Hector MD Primary Care Provider Active Dr. Caron Simeon MD Attending Provi martita, Referring Provider, Other Provider Active Team Status: Inactive Member Role Status Dates Dr. Domenic Hector MD Primary Care Provider, Refer ring Provider Active Dr. Edouard Ann MD Attending Provider Active Team Status: Inactive Member Role Status Dates Dr. Domenic Hector MD Primary Care Provider, Refer ring Provider Active Dr. Rahat Nunez DO Attending Provider Active Team Status: Inactive Member Role Status Dates Dr. Domenic Hector MD Primary Care Provider, Atten ding Provider Active Team Status: Inactive Member Role Status Dates Dr. Domenic Hector MD Primary Care P rovider, Attending Provider, Referring Provider Active Team Status: Inactive Member Role Status Dates Dr. Domenic Hector MD Primary Care Provider Active Dr. Caron Simeon MD Attending Provider Active Team Status: Active Member Role Status Dates Dr. Domenic Hector MD Primary Care Provider Active Dr. Edouard Ann MD Attending Provider Active Team Status: Inactive Member Role Status Dates Dr. Domenic Hector MD Primary Care Provider Active Dr. Edouard Ann MD Attending Provider Active Team Status: Active Member Role Status Dates Dr. Domenic Hector MD Primary Care Provider Active Dr. Edouard Ann MD Attending Provider, Referring Pro vider Active Team Status: Inactive Member Role Status Dates Dr. Domenic Hector MD Primary Care Provider Active Renae Kilgore NP, MEDICAL PATHOLOGY TEACHER-C Attending Provider, Referring Provider Active Team Status: Inactive Member Role Status Dates Dr. Domenic Hector MD Primary Care Provider, Refer ring Provider Active Renae Kilgore NP, MEDICAL PATHOLOGY TEACHER-C Attending Provider Active Team Status: Active Member Role Status Dates Dr. Domenic Hector MD Primary Care Provider Active Start: August 09, 2024 Dr. Edouard Ann MD Attending Provider Active S tart: August 09, 2024 Dr. Edouard Ann MD Referring Provider Active S tart: August 09, 2024 FOR RECORDS PERTAINING TO PATIENTS WHO ARE OR HAVE BEEN ENROLLED IN A CHEMICAL DEPENDENCY/SUBSTANCEABUSE PROGRAM, SOME INFORMATION MAY BE OMITTED. This clinical summary was aggregated from multiple sources. Caution should be exercised in using it in the provision of clinical care. This summary normalizes information from multiple sources, and as a consequence, information in this document may materially change the coding, format and clinical context of patient data. In addition, data may be omitted in some cases. CLINICAL DECISIONS SHOULD BE BASED ON THE PRIMARY CLINICAL RECORDS. [facility]. provides no warranty or guarantee of the accuracy or completeness of information in this document.
== END | disposition home or self-care (01) ==
LOC: OPBI 14:52
PROVIDERS: PCP Internal Medicine; Referring Provider Internal Medicine Medical Oncology; Visit Provider Internal Medicine Medical Oncology
DX: Z12.31 Encounter for screening mammogram for malignant neoplasm of breast (principal); Z85.3 Personal history of malignant neoplasm of breast
CPT/HCPCS: 77063; 77067